=== PATIENT | male | born 1980 | race Caucasian/White ===

== ENCOUNTER 2019-08-27 16:11 | Emergency (ER) | payer SELFPAY ==
[2019-08-27] MEDS ORDERED: OLANZAPINE 2.5 MG TABLET PO ONE (17:21)
[2019-08-27] MEDS ORDERED: HYDROXYZINE PAMOATE 50 MG CAPSULE PO ONE (17:21)
--- NOTE | 2019-08-27 17:27 | ER Document Report ---
ED Psych Disorder / Suicide - General Mode of Arrival: Medic Information source: Patient TRAVEL OUTSIDE OF THE U.S. IN LAST 30 DAYS: No - Related Data Home Medications: pt brought home medications <MARIAKATLINMILDRED A - Last Filed: 08/27/19 17:52> <KETURAH CASTELLANOS - Last Filed: 08/28/19 16:49> <SANDY MCKINNEY - Last Filed: 08/28/19 16:58> - General Chief Complaint: Psych Problem Stated Complaint: ANXIETY Time Seen by Provider: 08/27/19 17:06 - HPI Notes: 39-year-old male with a history of bipolar disorder, schizophrenia for complaints of panic attack and anxiety that has become progressively worse over the last 4 days presents to the emergency room with suicidal ideations in which he plans to cut himself. Patient is requesting for security to be around because he is scared that he is going to hurt himself. His girlfriend is in the room, girlfriend states that she is not scared that he will hurt her. Patient admits that he is a quarter and has been trying to cut himself. Denies fevers, chills, chest pain,palpitations, shortness of breath, dyspnea, nausea, vomi ting, diarrhea, abdominal pain, hematuria,blurred vision, double vision, loss of vision, speech changes, LH, dizziness, syncope, headaches, wheezing, ST, URI, neck pain, weakness, bowel or bladder dysfunction, saddle anesthesia, numbness or tingling in bilateral upper or lower extremities equally, muscle paralysis, weakness in bilateral upper or lower extremities equally or rash. Denies IV drug use. (MILDRED SIFUENTES) - Related Data Allergies/Adverse Reactions: codeine [Codeine] Allergy (Verified 08/27/19 16:33) cyclobenzaprine HCl [From Flexeril] Allergy (Verified 08/27/19 16:33) acetaminophen [From Tylenol] Adverse Reaction (Verified 08/27/19 16:33) mercury Allergy (Uncoded 08/27/19 16:33) Past Medical History - General Information source: Patient - Social History Smoking Status: Current Every Day Smoker Frequency of alcohol use: Occasional Drug Abuse: Marijuana Family History: Arthritis, CAD, COPD, DM, Hyperlipidemia, Hypertension. denies: CVA, Malignancy, Thyroid Disfunction Patient has suicidal ideation: Yes - x 4 days Patient has homicidal ideation: No Pulmonary Medical History: Reports: Hx Asthma - As a child Neurological Medical History: Reports: Hx Seizures Renal/ Medical History: Reports: Hx Kidney Stones. Denies: Hx Peritoneal Dialysis GI Medical History: Reports: Hx Hepatitis - C Musculoskeletal Medical History: Reports Hx Musculoskeletal Trauma Skin Medical History: Reports Hx Cellulitis - Right foot 3 weeks ago, healed Psychiatric Medical History: Reports: Hx Bipolar Disorder, Hx Depression, Hx Schizophrenia - paranoid Traumatic Medical History: Reports: Hx Fractures - right knee Infectious Medical History: Reports: Hx Hepatitis - C - Immunizations Immunizations up to date: Yes Hx Diphtheria, Pertussis, Tetanus Vaccination: Yes <MILDRED SIFUENTES - Last Filed: 08/27/19 17:52> Review of Systems - Review of Systems Constitutional: No symptoms reported EENT: No symptoms reported Cardiovascular: No symptoms reported Respiratory: No symptoms reported Gastrointestinal: No symptoms reported Genitourinary: No symptoms reported Male Genitourinary: No symptoms reported Musculoskeletal: No symptoms reported Skin: No symptoms reported Hematologic/Lymphatic: No symptoms reported Neurological/Psychological: See HPI <MILDRED SIFUENTES - Last Filed: 08/27/19 17:52> Physical Exam <MILDRED SIFUENTES - Last Filed: 08/27/19 17:52> - Vital signs Vitals: Temp Pulse Resp BP Pulse Ox 98.0 F 112 H 16 132/98 H 98 08/27/19 16:23 08/27/19 16:23 08/27/19 16:23 08/27/19 16:23 08/27/19 16:23 - Notes Notes: PHYSICAL EXAMINATION:reviewed vital signs by RN GENERAL: Well-appearing, well-nourished and in mild distress. HEAD: Atraumatic, normocephalic. EYES: Pupils equal round and reactive to light, extraocular movements intact, sclera anicteric, conjunctiva are normal. ENT: Nares patent, oropharynx clear without exudates. Moist mucous membranes. NECK: Normal range of motion, supple without lymphadenopathy LUNGS: Breath sounds clear to auscultation bilaterally and equal. No wheezes rales or rhonchi. HEART: Regular rate and rhythm without murmurs ABDOMEN: Soft, nontender, nondistended abdomen. No guarding, no rebound. No masses appreciated. Musculoskeletal: Normal range of motion, no pitting or edema. No cyanosis. NEUROLOGICAL: Cranial nerves grossly intact. Normal speech, normal gait. Normal sensory, motor exams PSYCH:very anxious, flat affect SKIN: Warm, Dry, normal turgor, no rashes or lesions noted. (MILDRED SIFUENTES) Course - Laboratory Result Diagrams: 08/27/19 16:52 08/27/19 16:52 <MILDRED SIFUENTES - Last Filed: 08/27/19 17:52> - Laboratory Result Diagrams: 08/27/19 16:52 08/27/19 16:52 <KETURAH CASTELLANOS - Last Filed: 08/28/19 16:49> - Laboratory Result Diagrams: 08/27/19 16:52 08/27/19 16:52 <SANDY MCKINNEY - Last Filed: 08/28/19 16:58> - Re-evaluation Re-evalutation: 08/27/19 17:56 Afebrile vital stable and in mild distress due to anxiety. Nurse's notes reviewed. Patient placed on IVC paperwork due to wanting to leave before being seen by mental health. Patient initial medications started of Zyprexa 2.5 mg and Vistaril 50 mg orally for his p.m. doses. Patient states he is becoming more anxious, feels like his panic attack is getting worse, patient given 50 mg of Benadryl IM and Geodon 20 mg IM. 08/27/19 17:57 (MILDRED SIFUENTES) - Vital Signs Vital signs: Temp Pulse Resp BP Pulse Ox 97.7 F 70 18 110/60 99 08/28/19 11:00 08/28/19 11:00 08/28/19 11:00 08/28/19 11:00 08/28/19 11:00 - Laboratory Laboratory results interpreted by me: 08/27/19 08/28/19 16:52 02:15 BUN 26 H Total Bilirubin 1.4 H AST 87 H Total Protein 8.7 H Albumin 5.1 H Urine Ketones 20 H Acetaminophen < 10 L Discharge <MILDRED SIFUENTES - Last Filed: 08/27/19 17:52> <KETURAH CASTELLANOS - Last Filed: 01/08/20 16:49> <FAYEADIELJUAN - Last Filed: 08/28/19 16:58> - Discharge Clinical Impression: Suicidal ideation, Anxiety Condition: Stable Disposition: HOME, SELF-CARE Additional Instructions: You have been evaluated by both medical and behavioral health teams and have been deemed appropriate for discharge. Medication recommendations have been provided and are as follows: Depakote 250MG, twice a day You have elected to seek voluntary substance abuse treatment at [facility]. You are encouraged to follow up with this opportunity. You are highly encouraged to cease all illicit substance use. Bipolar Disorder Bipolar disorder is also called manic-depressive disorder. Depression alternates with brain hyperactivity called roman. Each phase lasts from several days to a few weeks. We don't know exactly what causes bipolar disorder, but it's treatable. During the "manic phase," you may feel elated and energetic. You may have racing thoughts, rapid speech, increased activity, and grandiose ideas. During this time, you may not realize how poor your judgement is. Inappropriate spending, drug abuse, excessive alcohol use, marriage problems, and irresponsible sexual behavior are common during the manic phase. During the "depressive phase," you might feel depressed, guilty, worthless, fatigued, and unable to concentrate. You might have thoughts of suicide. Good treatments are available for bipolar disorder. Welsh is a classic drug for bipolar disorder, and is still often useful. If the manic phase is very mild, an antidepressant alone can be prescribed. If the manic phase is very severe, an antipsychotic medicine (such as Haldol) may be needed. The treatment must be matched to your symptoms, so it's important to work closely with your psychiatric care provider. Contact your physician, the hospital emergency center, crisis line, or your counsellor if you are losing control or having self-destructive thoughts. AMPHETAMINE / METHAMPHETAMINE ABUSE: Amphetamines are addicting stimulants. Amphetamines overstimulate the nervous system and give a false feeling of power and mastery. These drugs may be obtained as prescription pills for weight loss, narcolepsy, or attention-deficit disorder. More often they're bought as an illegal street drug, methamphetamine (crank, crystal, speed). Using amphetamines repeatedly can lead to serious medical problems including malnutrition, severe depression, and paranoia. It can take increasing amounts to feel good. Eventually, there will be a "burn out." When you go off amphetamines there is a period of depression that may last for weeks or even months. High doses of amphetamines can cause seizures, confusion, hallucinations, delusions, high blood pressure, muscle damage, heart damage, or sudden . Many times these deadly complications occur even with "normal" doses. Injection of amphetamines is risky for developing abscesses, endocarditis (heart infection), pneumonia, and AIDS. Withdrawal from amphetamines often causes anxiety, depression, and drug cravings. Some users become paranoid and psychotic. There may be cramps, nausea, and vomiting. Many treatment programs are available, but you must make the decision to quit. Medication can be prescribed to control the symptoms of amphetamine toxicity (beta blockers or benzodiazepines). Withdrawal symptoms may require tranquilizers. AT ANY TIME, IF YOUR SYMPTOMS CHANGE SIGNIFICANTLY OR WORSEN OR YOU DEVELOP NEW SYMPTOMS, RETURN TO THE EMERGENCY DEPARTMENT IMMEDIATELY FOR RE-EVALUATION. Prescriptions: Divalproex Sodium [Depakote] 250 mg PO BID #30 tablet.
[2019-08-27 17:30] LABS: ABSOLUTE EOSINOPHILS # (AUTO) 0.1 10^3/uL (0.0-0.6); ABSOLUTE LYMPHOCYTES (AUTO) 1.9 10^3/uL (0.5-4.7); ABSOLUTE MONOCYTES (AUTO) 0.7 10^3/uL (0.1-1.4); ABSOLUTE NEUT (AUTO) 3.9 10^3/uL (1.7-8.2); BASOPHILS % (AUTO) 0.5 % (0-2); EOSINOPHILS % (AUTO) 1.9 % (0-6); HEMATOCRIT 40.9 % (37.9-51.0); HEMOGLOBIN 14.2 g/dL (13.5-17.0); LYMPHOCYTES % (AUTO) 28.3 % (13-45); MEAN CORPUSCULAR HEMOGLOBIN 29.8 pg (27.0-33.4); MEAN CORPUSCULAR HGB CONC 34.6 g/dL (32.0-36.0); MEAN CORPUSCULAR VOLUME 86 fl (80-97); MONOCYTES % (AUTO) 10.8 % (3-13); PLATELET COUNT 257 10^3/uL (150-450); RED BLOOD COUNT 4.75 10^6/uL (4.35-5.55); RED CELL DISTRIBUTION WIDTH 13.8 % (11.5-14.0); SEGMENTED NEUTROPHILS % (AUTO) 58.5 % (42-78); TOTAL CELLS COUNTED % (AUTO) 100 %; WHITE BLOOD COUNT 6.6 10^3/uL (4.0-10.5)
[2019-08-27 17:47] LABS: ALBUMIN 5.1 g/dL (3.5-5.0); ALKALINE PHOSPHATASE 87 U/L (38-126); ANION GAP 12 (5-19); ASPARTATE AMINO TRANSFERASE 87 U/L (17-59); BILIRUBIN,DIRECT 0.4 mg/dL (0.0-0.4); BILIRUBIN,TOTAL 1.4 mg/dL (0.2-1.3); BLOOD UREA NITROGEN 26 mg/dL (7-20); CALCIUM 9.6 mg/dL (8.4-10.2); CARBON DIOXIDE 26 mmol/L (22-30); CHLORIDE 100 mmol/L (98-107); GLUCOSE 98 mg/dL (75-110); POTASSIUM 3.9 mmol/L (3.6-5.0); SALICYLATE 2.5 mg/dL (2.0-20.0); TOTAL PROTEIN 8.7 g/dL (6.3-8.2)
[2019-08-27] MEDS ORDERED: ZIPRASIDONE MESYLATE INJ/PF 20 MG SDV IM ONE (17:47)
[2019-08-27] MEDS ORDERED: DIPHENHYDRAMINE HCL 50 MG/ML VIAL IM ONE (17:47)
[2019-08-27 17:52] LABS: ACETAMINOPHEN < 10 ug/mL (10-30); ALCOHOL < 10 mg/dL (NONE DETECTED)
[2019-08-27] MEDS ORDERED: CHLORPROMAZINE HCL INJ 25 MG/1 ML AMPULE IV PRN ×2 (19:01→19:07)
[2019-08-27] MEDS ORDERED: BENZTROPINE MESYLATE INJ 2 MG/2 ML AMPULE IM PRN (19:02)
[2019-08-27] MEDS ORDERED: CHLORPROMAZINE HCL INJ 25 MG/1 ML AMPULE IM PRN (19:09)
[2019-08-27] MEDS: BENZTROPINE MESYLATE INJ 2 MG/2 ML AMPULE IM SCH (19:42)
--- NOTE | 2019-08-27 22:38 | EKG REPORT ---
SEVERITY:- NORMAL ECG - SINUS RHYTHM : Confirmed by: Nahum Marquis 27-Aug-2019 22:38:34
[2019-08-28 02:36] LABS: APPEARANCE,URINE CLEAR; BILIRUBIN,URINE NEGATIVE (NEGATIVE); COLOR,URINE YELLOW; GLUCOSE, URINE NEGATIVE (NEGATIVE); KETONES,URINE 20 mg/dL (NEGATIVE); LEUKOCYTE ESTERASE,URINE NEGATIVE (NEGATIVE); NITRITE,URINE NEGATIVE (NEGATIVE); PROTEIN,URINE NEGATIVE (NEGATIVE); URINE SPECIFIC GRAVITY 1.019; UROBILINOGEN,URINE NEGATIVE mg/dL (<2.0)
[2019-08-28 02:54] LABS: URINE BARBITURATES SCREEN NEGATIVE; URINE BENZODIAZEPINES SCREEN NEGATIVE; URINE COCAINE SCREEN NEGATIVE; URINE METHADONE SCREEN NEGATIVE; URINE PHENCYCLIDINE SCREEN NEGATIVE
[2019-08-28 03:06] LABS: URINE MARIJUANA (THC) SCREEN UNCONFIRMED POSITIVE
--- NOTE | 2019-08-28 09:24 | PSYCHOLOGICAL NOTE ---
Psych Note - Psych Note Date seen by psych provider: 08/28/19 Time seen by psych provider: 08:05 Psych Note: Reason for consult: SI & Auditory and visual hallucinations Patient is a 39 year old male who presents to ED via EMS after concerns for inc reasing panic attacks. Patient was placed on IVC petition when he threatened to elope. Patient was released from [facility] ago. Patient complains of paranoia, auditory and visual hallucinations, and suicidal ideation. Patient states his suicidal ideation is linked to distress from experiencing auditory hallucinations. Patient reports mental health diagnosis of Bipolar and Schizophrenia. Patient states he is experiencing visual hallucinations by "seeing a lot of things," specifically people out to get me. Patient states he is experiencing auditory hallucinations by "seeing the people out to get me." Patient denies command hallucinations of any type. Patient reports paranoia and stated he had an "episode" in which he "thought the nurses were in on it." Clinician inquired further. Patient states he wanted to leave but "the nurse would not let me leave." Clinician informed patient of IVC petition due to concerns he was a danger to himself in the stated in which he presented to the ED. Patient verbalized understanding. Patient states he "just woke up" so he does not know if his is currently experiencing paranoid type delusions. Patient states he has "no idea" what his plans are post [facility] release. Patient states he has stable housing with his girlfriend. Patient is on probation for 12 months. Patient reports ETOH consumption and marijuana use on 08/23/2019. [facility] urine drug screen is positive for marijuana and amphetamines. Patient denies voluntary consumption of amphetamine of any kind. Patient states "my joint must have been laced." Patient is requesting placement to [facility] for substance abuse treatment. Clinician reviewed substance abuse history since his release from [facility] 4 days ago. Clinician informed patient he does not meet the criteria for [facility]. Patient states he takes "street" Suboxone daily to treat substance abuse. Patient states "I'm bout to be sick as hell in here today." Patient states he needs detox from Suboxone, which he received daily while incarcerated. Patient reports a history of substance abuse. Patient reports mental health diagnosis of Schizophrenia and Bipolar Disorder. Patient states he was pr escribed, and has been taking the Zyprexa. Patient is poor historian regarding mental health related questions. Update 16:25- Patient states he was taking Suboxone without prescription while he was incarcerated. Patient is alert and oriented to person, place, time and circumstance. Mood is normal with congruent affect. Patient endorses passive suicide with no plan. Patient denies homicidal ideation. Patient reports paranoid delusions, however here is no observed behavior that suggests patient is responding to internal stimuli. Patient reports current auditory and visual hallucinations. Eye contact is appropriate. Conversational speech is within normal rate, tone, and prosody. Intellectual ability appears to be within average range. Attention and concentration are good. Insight, judgment and impulse control are currently poor. Medication recommendations per [facility] contracted psychiatrist Dr. Ramona MELO is as follows: Depakote 250MG, twice a day Impression/Plan: Patient is recommended for rescind of IVC and is cleared from acute psychiatric services. Patient endorses passive suicidal ideation with no plan. Patient denies homicidal ideation. There is no observed behavior that suggests patient is responding to internal stimuli, however patient reports paranoid delusions and auditory and visual hallucinations. Patient was released from [facility] 4 days ago. Patient was taking Suboxone without prescription during his 27 month incarceration. Patient reported possible seizure activity in 2011, however seizures were not verified. Patient reports no seizure activity. [facility] would not accept patient initially because of concerns for seizures. ED Physician prescribed Depakote 250MG, twice a day for mental health concerns. Depakote will also help with seizure concerns. Plan is for patient to voluntary seek treatment at [facility]. Dr. Padgett was consulted on the care and management of this patient; attending physician is in agreement with recommendations and disposition.
[2019-08-28] MEDS: BENZTROPINE MESYLATE INJ 2 MG/2 ML AMPULE IM SCH (10:29)
[2019-08-28] MEDS ORDERED: IBUPROFEN 800 MG TABLET PO ONE (13:19)
--- NOTE | 2019-08-28 14:10 | ER Document Report ---
Doctor's Note Notes: 08/28/19 14:08 PHYSICAL EXAMINATION: GENERAL: Well-appearing and in no acute distress. HEAD: Atraumatic, normocephalic. EYES: sclera anicteric, conjunctiva are normal. ENT: nares patent. Moist mucous membranes. NECK: Normal range of motion, supple without lymphadenopathy LUNGS: CTAB and equal. No wheezes rales or rhonchi. HEART: Regular rate and rhythm without murmurs EXTREMITIES: Normal range of motion, no pitting edema. NEUROLOGICAL: Cranial nerves grossly intact. Normal speech. Normal gait. PSYCH: Normal mood, normal affect. SKIN: Warm, Dry, normal turgor, no rashes or lesions noted 08/28/19 14:09 Patient complains of feeling jittery as he feels like he is withdrawing from Suboxone. Patient is requesting something to help settle his nerves. [employer] advised of patient's PRN orders. Patient otherwise appears medically clear for transfer discharge pending mental health evaluation. 08/28/19 17:06 Mental health team have arranged for patient to go to [facility] for treatment. They do recommend starting patient on prescription of Depakote 250 mg twice a day. IVC team feels that patient does not meet IVC criteria at this time and is stable for discharge. Patient otherwise medically clear for discharge. Patient does plan to follow-up with the [facility] and will present there once he has picked up his prescriptions.
[2019-08-28 17:13] VITALS: BP 132/78
== END 2019-08-28 17:33 | disposition home or self-care (01) ==
LOC: ER 16:11
DX: F41.9 Anxiety disorder, unspecified (principal); R45.851 Suicidal ideations; F17.200 Nicotine dependence, unspecified, uncomplicated; F12.10 Cannabis abuse, uncomplicated; Z88.6 Allergy status to analgesic agent; Z88.5 Allergy status to narcotic agent; Z88.8 Allergy status to other drugs, medicaments and biological substances; Z91.048 Other nonmedicinal substance allergy status; Z75.1 Person awaiting admission to adequate facility elsewhere
CPT/HCPCS: 93005; 99284; 96372; 36415; 80307 ×4; 84443; 85025; 80053; 81001; 93010; J0515 ×2; J1200; J3490; J3486; J3230

== ENCOUNTER 2019-08-30 05:06 | Emergency (ER) | payer SELFPAY ==
[2019-08-30 05:26] LABS: ABSOLUTE LYMPHOCYTES (AUTO) 0.9 10^3/uL (0.5-4.7); ABSOLUTE MONOCYTES (AUTO) 0.5 10^3/uL (0.1-1.4); ABSOLUTE NEUT (AUTO) 4.5 10^3/uL (1.7-8.2); BASOPHILS % (AUTO) 0.5 % (0-2); EOSINOPHILS % (AUTO) 0.3 % (0-6); HEMATOCRIT 40.7 % (37.9-51.0); LYMPHOCYTES % (AUTO) 14.4 % (13-45); MEAN CORPUSCULAR HEMOGLOBIN 29.7 pg (27.0-33.4); MEAN CORPUSCULAR HGB CONC 34.4 g/dL (32.0-36.0); MEAN CORPUSCULAR VOLUME 87 fl (80-97); MONOCYTES % (AUTO) 8.2 % (3-13); PLATELET COUNT 225 10^3/uL (150-450); RED CELL DISTRIBUTION WIDTH 13.7 % (11.5-14.0); SEGMENTED NEUTROPHILS % (AUTO) 76.6 % (42-78); TOTAL CELLS COUNTED % (AUTO) 100 %; WHITE BLOOD COUNT 5.9 10^3/uL (4.0-10.5)
[2019-08-30 05:49] LABS: ALBUMIN 4.8 g/dL (3.5-5.0); ALKALINE PHOSPHATASE 62 U/L (38-126); ANION GAP 13 (5-19); ASPARTATE AMINO TRANSFERASE 86 U/L (17-59); BILIRUBIN,DIRECT 0.4 mg/dL (0.0-0.4); BILIRUBIN,TOTAL 0.9 mg/dL (0.2-1.3); BLOOD UREA NITROGEN 32 mg/dL (7-20); CALCIUM 9.7 mg/dL (8.4-10.2); CARBON DIOXIDE 26 mmol/L (22-30); CHLORIDE 102 mmol/L (98-107); GLUCOSE 152 mg/dL (75-110); POTASSIUM 3.8 mmol/L (3.6-5.0); SALICYLATE 1.1 mg/dL (2.0-20.0)
[2019-08-30 05:53] LABS: ACETAMINOPHEN < 10 ug/mL (10-30); ALCOHOL < 10 mg/dL (NONE DETECTED)
[2019-08-30 07:08] VITALS: BP 124/79
--- NOTE | 2019-08-30 07:08 | ER Document Report ---
ED General - General Chief Complaint: Psych Problem Stated Complaint: HALUCINATION Time Seen by Provider: 08/30/19 06:52 TRAVEL OUTSIDE OF THE [place].S. IN LAST 30 DAYS: No - HPI Notes: Patient is a 39-year-old male who presents to the emergency department for evaluation. He was recently released from shelter. He states he was released with prescriptions for Zyprexa that were entirely too low. He states has been increasingly paranoid. He states he wants help, but particularly just wants this Zyprexa dose increased. He states he used to be on 25 mg of Zyprexa twice a day, he is now currently on 2.5 mg. He denies any suicidal or homicidal ideation, admits to cutting. He states he had gotten some relief with cutting in the past, but states it was not helpful this time around. The patient is present with his girlfriend here in the room. He states that he would like to be discharged. He already has set up appointments with [facility] for either tomorrow or Monday. He states that he had been here previously and was not happy with the results. He states that he wants to go to [facility] [place], and plans to leave the department and go directly to [facility] for further psychiatric evaluation. His girlfriend is with him, states that this is the plan. - Related Data Allergies/Adverse Reactions: codeine [Codeine] Allergy (Verified 08/27/19 16:33) cyclobenzaprine HCl [From Flexeril] Allergy (Verified 08/27/19 16:33) acetaminophen [From Tylenol] Adverse Reaction (Verified 08/27/19 16:33) mercury Allergy (Uncoded 08/27/19 16:33) Home Medications: ziprexa. prozac. visteril. suboxone ( off the street) per pt Past Medical History - General Information source: Patient - Social History Smoking Status: Current Every Day Smoker Chew tobacco use (# tins/day): No Frequency of alcohol use: None Drug Abuse: Marijuana, Other - Obtains Suboxone illegally Family History: Arthritis, CAD, COPD, DM, Hyperlipidemia, Hypertension. denies: CVA, Malignancy, Thyroid Disfunction Patient has suicidal ideation: No Patient has homicidal ideation: No Pulmonary Medical History: Reports: Hx Asthma - As a child Neurological Medical History: Reports: Hx Seizures Renal/ Medical History: Reports: Hx Kidney Stones. Denies: Hx Peritoneal Dialysis GI Medical History: Reports: Hx Hepatitis - C Musculoskeletal Medical History: Reports Hx Musculoskeletal Trauma Skin Medical History: Reports Hx Cellulitis - Right foot 3 weeks ago, healed Psychiatric Medical History: Reports: Hx Bipolar Disorder, Hx Depression, Hx Schizophrenia - paranoid Traumatic Medical History: Reports: Hx Fractures - right knee Infectious Medical History: Reports: Hx Hepatitis - C - Immunizations Immunizations up to date: Yes Hx Diphtheria, Pertussis, Tetanus Vaccination: Yes Review of Systems - Review of Systems Constitutional: No symptoms reported EENT: No symptoms reported Cardiovascular: No symptoms reported Respiratory: No symptoms reported Gastrointestinal: No symptoms reported Genitourinary: No symptoms reported Skin: See HPI Neurological/Psychological: No symptoms reported Physical Exam - Vital signs Vitals: Temp Pulse Resp BP Pulse Ox 97.7 F 77 16 119/81 100 08/30/19 05:08 08/30/19 05:08 08/30/19 05:08 08/30/19 05:08 08/30/19 05:08 - Notes Notes: Is a 39-year-old male who appears stated age in no acute distress. He is calm and cooperative, sitting on the bed with his girlfriend. He makes good eye contact. Vital signs reviewed, please refer to chart. Head is normocephalic, atraumatic. Pupils equal round, reactive to light. Neck is supple without meningismus. Heart is regular rate and rhythm. Lungs are clear to auscultation bilaterally. Abdomen is soft, nontender, normoactive bowel sounds throughout. Extremities without cyanosis, clubbing. Posterior calves are nontender. Peripheral pulses are equal. Skin is warm and dry. He has superficial healing lacerations noted to the left forearm. He has multiple scars on the forearms consistent with history of cutting. Patient is awake, alert, neurological exam is nonfocal. Course - Re-evaluation Re-evalutation: 08/30/19 07:11 Patient presents to the emergency department for evaluation. Initially he was placed in a psychiatric consult. The patient at this time has no suicidal or homicidal ideation. He has a longstanding history of schizophrenia, believes he just needs medication adjustment. He states he was "unhappy" with the care and recommendations he received here. He is already been in touch with primary care, seeking out counseling, and has a plan to seek out medications at this time. Today, the patient and girlfriend are able to contract for safety. At this point, I do not see any need for IVC. The patient is not an imminent threat to himself. He had his IVC removed when he was seen by the psychosocial team yesterday. At this point I will discharge the patient. He is advised to continue medications as prescribed, return to the ED with worsening or new barbara rning symptoms of any sort. - Vital Signs Vital signs: Temp Pulse Resp BP Pulse Ox 98 F 68 16 124/79 100 08/30/19 07:08 08/30/19 07:08 08/30/19 07:08 08/30/19 07:08 08/30/19 07:08 - Laboratory Result Diagrams: 08/30/19 05:12 08/30/19 05:12 Laboratory results interpreted by me: 08/30/19 05:12 BUN 32 H Glucose 152 H AST 86 H Salicylates 1.1 L Acetaminophen < 10 L Discharge - Discharge Clinical Impression: Schizophrenia Condition: Stable Disposition: HOME, SELF-CARE Instructions: Schizophrenia ([facility]) Additional Instructions: Please continue to take your prescribed medications as directed. Continue to seek out appropriate psychiatric/psychological care. Return to the emergency department with worsening or new concerning symptoms of any sort.
--- NOTE | 2019-08-30 21:00 | EKG REPORT ---
SEVERITY:- OTHERWISE NORMAL ECG - SINUS TACHYCARDIA : Confirmed by: Nahum Marquis 30-Aug-2019 20:59:59
== END 2019-08-30 07:26 | disposition home or self-care (01) ==
LOC: ER 05:06
DX: F20.0 Paranoid schizophrenia (principal); F31.9 Bipolar disorder, unspecified; F19.10 Other psychoactive substance abuse, uncomplicated; F12.10 Cannabis abuse, uncomplicated; F17.200 Nicotine dependence, unspecified, uncomplicated; S51.812A Laceration without foreign body of left forearm, initial encounter; X78.9XXA Intentional self-harm by unspecified sharp object, initial encounter; Z79.899 Other long term (current) drug therapy; Z88.6 Allergy status to analgesic agent; Z88.5 Allergy status to narcotic agent; Z88.8 Allergy status to other drugs, medicaments and biological substances; Z91.048 Other nonmedicinal substance allergy status
CPT/HCPCS: 36415; 80053; 80307; 85025; 93005; 93010; 99284

== ENCOUNTER 2019-09-29 11:14 | Emergency (ER) | payer SELFPAY ==
[2019-09-29] MEDS ORDERED: ONDANSETRON 4 MG TAB.RAPDIS PO ONE (11:27)
--- NOTE | 2019-09-29 11:29 | ER Document Report ---
ED Medical Screen (RME) - General Stated Complaint: PSYCH/FLU SYMPTOMS Time Seen by Provider: 09/29/19 11:22 Mode of Arrival: Medic Information source: Patient Notes: 39-year-old male patient with history of schizophrenia presenting to the emergency department with complaints of auditory and visual hallucinations as well as flulike symptoms. Patient reports he has had the flulike symptoms for his me 1 week. States he has been vomiting. Patient denies any suicidal homicidal ideations but states that he does not think he is on the right psychiatric medications and wants help. Patient appears very anxious, he is very guarded however he is answering most questions. I have greeted and performed a rapid initial assessment of this patient. A comprehensive ED assessment and evaluation of the patient, analysis of test results and completion of the medical decision making process will be conducted by additional ED providers. I have specifically instructed the patient or family members with the patient to immediately return to any nursing staff should anything change in the patient's condition or with their chief complaint. TRAVEL OUTSIDE OF THE [place] IN LAST 30 DAYS: No - Related Data Allergies/Adverse Reactions: codeine [Codeine] Allergy (Verified 08/27/19 16:33) cyclobenzaprine HCl [From Flexeril] Allergy (Verified 08/27/19 16:33) acetaminophen [From Tylenol] Adverse Reaction (Verified 08/27/19 16:33) mercury Allergy (Uncoded 08/27/19 16:33) Past Medical History Pulmonary Medical History: Reports: Hx Asthma - As a child Neurological Medical History: Reports: Hx Seizures Renal/ Medical History: Reports: Hx Kidney Stones. Denies: Hx Peritoneal Dialysis GI Medical History: Reports: Hx Hepatitis - C Musculoskeltal Medical History: Reports Hx Musculoskeletal Trauma Skin Medical History: Reports Hx Cellulitis - Right foot 3 weeks ago, healed Psychiatric Medical History: Reports: Hx Bipolar Disorder, Hx Depression, Hx Schizophrenia - paranoid Traumatic Medical History: Reports: Hx Fractures - right knee Infectious Medical History: Reports: Hx Hepatitis - C - Immunizations Immunizations up to date: Yes Hx Diphtheria, Pertussis, Tetanus Vaccination: Yes
[2019-09-29] MEDS ORDERED: NORMAL SALINE 1000 ML 1,000 ML IV ONE ×2 (12:08→16:43)
--- NOTE | 2019-09-29 12:12 | ER Document Report ---
ED Psych Disorder / Suicide - General Chief Complaint: Psych Problem Stated Complaint: PSYCH/FLU SYMPTOMS Time Seen by Provider: 09/29/19 11:22 Mode of Arrival: Medic Notes: HPI: 39-year-old male with past medical history as recorded including schizophrenia who presents today with the onset 1 week ago of some nausea, vomiting, and diarrhea. He has had the symptoms throughout the week which have subsided yesterday. No vomiting or diarrhea today. Patient does feel improved. Currently no abdominal pain. He states his auditory hallucinations have worsened. He has not been able to take his medications. His is at bedside and concurs with this assessment. Denies any suicidal homicidal ideations at this moment. ROS: See HPI All other review of systems reviewed and otherwise negative Reviewed vital signs and nursing note as charted by RN. PHYSICAL EXAM: CONSTITUTIONAL: Alert and oriented and responds appropriately to questions. Well-appearing; well-nourished HEAD: Normocephalic; atraumatic EYES: PERRL; full extraocular range of motion, sclerae non-icteric ENT: Normal nose; no rhinorrhea; moist mucous membranes; pharynx without lesions noted NECK: Supple without meningismus; non-tender; no cervical lymphadenopathy, no masses CARD: Regular rate and rhythm; no murmurs; symmetric distal pulses RESP: Normal chest excursion without splinting or tachypnea; breath sounds clear and equal bilaterally; no wheezes, no rhonchi, no rales ABD/GI: Normal bowel sounds; non-distended; soft, non-tender to deep palpation of all 4 quadrants of the abdomen BACK: The back appears normal and is non-tender to palpation EXT: Normal ROM in all joints; non-tender to palpation; no edema SKIN: No acute lesions noted NEURO: CN 2-12 intact; 5/5 bilateral upper and lower extremity strength with sensation intact to light touch PSYCH: The patient's mood and manner currently are very reasonable. He is calm and interactive and answers all questions appropriately TRAVEL OUTSIDE OF THE [place] IN LAST 30 DAYS: No - Related Data Allergies/Adverse Reactions: codeine [Codeine] Allergy (Verified 08/27/19 16:33) cyclobenzaprine HCl [From Flexeril] Allergy (Verified 08/27/19 16:33) acetaminophen [From Tylenol] Adverse Reaction (Verified 08/27/19 16:33) mercury Allergy (Uncoded 08/27/19 16:33) Past Medical History - General Information source: Patient - Social History Smoking Status: Current Every Day Smoker Family History: Arthritis, CAD, COPD, DM, Hyperlipidemia, Hypertension. denies: CVA, Malignancy, Thyroid Disfunction Patient has suicidal ideation: No Patient has homicidal ideation: No Pulmonary Medical History: Reports: Hx Asthma - As a child Neurological Medical History: Reports: Hx Seizures Renal/ Medical History: Reports: Hx Kidney Stones. Denies: Hx Peritoneal Dialysis GI Medical History: Reports: Hx Hepatitis - C Musculoskeletal Medical History: Reports Hx Musculoskeletal Trauma Skin Medical History: Reports Hx Cellulitis - Right foot 3 weeks ago, healed Psychiatric Medical History: Reports: Hx Bipolar Disorder, Hx Depression, Hx Schizophrenia - paranoid Traumatic Medical History: Reports: Hx Fractures - right knee Infectious Medical History: Reports: Hx Hepatitis - C - Immunizations Immunizations up to date: Yes Hx Diphtheria, Pertussis, Tetanus Vaccination: Yes Physical Exam - Vital signs Vitals: Temp Pulse Resp BP Pulse Ox 98.0 F 128 H 20 128/90 H 99 09/29/19 11:29 09/29/19 11:09/29/19 11:09/29/19 11:29 09/29/19 11:29 Course - Re-evaluation Re-evalutation: 09/29/19 12:11 Given the above history and physical, we will obtain basic labs, provide fluids, consult the psychiatry/psychology team and reassess. We would like to start the patient on medications and have a consultation performed. 09/29/19 13:43 Labs as recorded. Heart rate has improved. Patient has accepted to take p.o. medications. We have restarted the patient's home medications according to behavioral health. - Vital Signs Vital signs: Temp Pulse Resp BP Pulse Ox 98.0 F 128 H 20 128/90 H 99 09/29/19 11:29 09/29/19 11:29 09/29/19 11:09/29/19 11:09/29/19 11:29 - Laboratory Result Diagrams: 09/29/19 12:42 09/29/19 12:42 Laboratory results interpreted by me: 09/29/19 12:42 Potassium 3.4 L BUN 22 H Glucose 150 H AST 79 H Total Protein 8.4 H Albumin 5.2 H Salicylates 1.0 L Acetaminophen < 10 L Discharge - Discharge Clinical Impression: Nausea vomiting and diarrhea, Auditory hallucinations Condition: Good Disposition: PSYCH HOSP/UNIT
[2019-09-29] MEDS: BENZTROPINE MESYLATE 1 MG TABLET PO SCH (12:48)
[2019-09-29] MEDS: HALOPERIDOL 5 MG TABLET PO SCH ×2 (12:49→20:37)
[2019-09-29 12:54] LABS: ABSOLUTE LYMPHOCYTES (AUTO) 1.1 10^3/uL (0.5-4.7); ABSOLUTE MONOCYTES (AUTO) 0.6 10^3/uL (0.1-1.4); ABSOLUTE NEUT (AUTO) 4.6 10^3/uL (1.7-8.2); BASOPHILS % (AUTO) 0.5 % (0-2); EOSINOPHILS % (AUTO) 0.2 % (0-6); HEMATOCRIT 44.6 % (37.9-51.0); HEMOGLOBIN 15.2 g/dL (13.5-17.0); LYMPHOCYTES % (AUTO) 17.8 % (13-45); MEAN CORPUSCULAR HEMOGLOBIN 29.6 pg (27.0-33.4); MEAN CORPUSCULAR HGB CONC 34.2 g/dL (32.0-36.0); MEAN CORPUSCULAR VOLUME 87 fl (80-97); MONOCYTES % (AUTO) 10.1 % (3-13); PLATELET COUNT 257 10^3/uL (150-450); RED BLOOD COUNT 5.15 10^6/uL (4.35-5.55); RED CELL DISTRIBUTION WIDTH 13.7 % (11.5-14.0); SEGMENTED NEUTROPHILS % (AUTO) 71.4 % (42-78); TOTAL CELLS COUNTED % (AUTO) 100 %; WHITE BLOOD COUNT 6.4 10^3/uL (4.0-10.5)
[2019-09-29 13:01] LABS: A TYPE INFLUENZA AG NEGATIVE (NEGATIVE); B INFLUENZA AG NEGATIVE (NEGATIVE)
[2019-09-29 13:10] LABS: ALBUMIN 5.2 g/dL (3.5-5.0); ALKALINE PHOSPHATASE 77 U/L (38-126); ANION GAP 13 (5-19); ASPARTATE AMINO TRANSFERASE 79 U/L (17-59); BILIRUBIN,DIRECT 0.1 mg/dL (0.0-0.4); BLOOD UREA NITROGEN 22 mg/dL (7-20); CARBON DIOXIDE 26 mmol/L (22-30); CHLORIDE 100 mmol/L (98-107); GLUCOSE 150 mg/dL (75-110); POTASSIUM 3.4 mmol/L (3.6-5.0); TOTAL PROTEIN 8.4 g/dL (6.3-8.2)
[2019-09-29 13:12] LABS: ACETAMINOPHEN < 10 ug/mL (10-30); ALCOHOL < 10 mg/dL (NONE DETECTED)
[2019-09-29] MEDS ORDERED: CHLORPROMAZINE HCL INJ 25 MG/1 ML AMPULE IM PRN (13:21)
--- NOTE | 2019-09-29 13:36 | PSYCHOLOGICAL NOTE ---
Psych Note - Psych Note Date seen by psych provider: 09/29/19 Time seen by psych provider: 13:00 Psych Note: Reason For Consult:AMS Consent Permissions:Patient's girlfriend at bedside per patient's request Patient discloses getting sick last Monday and been having difficulty taking his psychiatric medications. Patient reports that he goes to [facility] and receives prescriptions for Zyprexa, Suboxone, Vistaril, and Prozac. Patient reports that he experiences auditory hallucinations of hearing music. He reports that he has been experiencing panic attacks and increase in fear and is not sure if he is hearing everything correctly. Patient reports he has no thoughts of wanting to harm himself or others and has not engaged in any self- harm behaviors in "a long time." Patient's girlfriend at bedside confirms this information stating that it has been a very long time since the patient attempted to harm himself. Patient is alert and orientated to person, place, time and circumstance. Mood is anxious with congruent affect. Patient denies suicidal and homicidal ideation. Patient reports paranoid delusions and auditory hallucinations; currently behaviors congruent with an intact reality based presentation ie organized and linear thought process. Eye contact is fair; clinician notes patient's eyes are shifting back and forth with with a slight frequent jump. Conversational speech is within normal rate, tone and prosody. Intellectual a bilities appear to be within the average range. Attention and concentration are fair. Insight, judgment, impulse control are fair. Medication recommendations per [facility]'s contracted psychiatrist Dr. Ramona MELO are as follows: Haldol 5 mg twice daily Cogentin 1 mg daily Thorazine 50 mg every 6 hours PRN Impression\\plan: Patient is recommended for 24-hour petition for evaluation. Patient has a reported history of both mental health and substance abuse. Is currently presenting paranoid and reports auditory hallucinations. It is currently unknown at this time if he is under the influence, and is a danger to himself and others at this time. Clinician notes that if it is determined the patient was under the influence, and is no longer demonstrating altered mental status, attending physicians are encouraged to rescind the 24-hour petition for evaluation to allow the patient to go home and follow-up with outpatient mental health services through [facility]. Patient does have medications at home which he identifies as Zyprexa, Suboxone, Vistaril and Prozac. There is significant concern that the patient has been using methamphetamines and had a probable positive toxicology on 08/28/2019; patient is highly encouraged to abstain from all illegal substances. Dr. Padgett was consulted to care management of this patient; attending physicians in agreement with recommendations and disposition.
--- NOTE | 2019-09-29 20:36 | EKG REPORT ---
SEVERITY:- OTHERWISE NORMAL ECG - SINUS TACHYCARDIA : Confirmed by: Ana Laura Olmedo MD 29-Sep-2019 20:34:57
[2019-09-30] MEDS: BENZTROPINE MESYLATE 1 MG TABLET PO SCH (10:13)
[2019-09-30] MEDS: HALOPERIDOL 5 MG TABLET PO SCH (10:13)
[2019-09-30 11:17] LABS: APPEARANCE,URINE SLIGHTLY-CLOUDY; BILIRUBIN,URINE NEGATIVE (NEGATIVE); COLOR,URINE AMBER; GLUCOSE, URINE NEGATIVE (NEGATIVE); KETONES,URINE NEGATIVE (NEGATIVE); LEUKOCYTE ESTERASE,URINE NEGATIVE (NEGATIVE); NITRITE,URINE NEGATIVE (NEGATIVE); PROTEIN,URINE 100 mg/dL (NEGATIVE); URINE SPECIFIC GRAVITY 1.025
[2019-09-30 11:41] LABS: URINE BARBITURATES SCREEN NEGATIVE; URINE BENZODIAZEPINES SCREEN NEGATIVE; URINE COCAINE SCREEN NEGATIVE; URINE MARIJUANA (THC) SCREEN NEGATIVE; URINE METHADONE SCREEN NEGATIVE; URINE PHENCYCLIDINE SCREEN NEGATIVE
--- NOTE | 2019-09-30 12:41 | ER Document Report ---
Doctor's Note Notes: 09/30/19 12:39 Patient's vital signs and previous labs, diagnostic images reviewed. Reviewed mental health notes, nurse's notes and previous providers notes. VSS. Pt is in no distress at this time. Denies any SI or HI. Slightly elevated AST, is not 3 times the normal rate, I do not feel that his sister do hepatitis panel at this point. Mental health would like to discharge patient General: A&Ox3. Answers questions appropriately. Heart: RRR Lungs: CTAB Psych: Flat affect A/P: Continue monitoring and rec's per MH. Normal diet Mental health considering discharge
--- NOTE | 2019-09-30 13:35 | ER Document Report ---
Doctor's Note Notes: 09/30/19 13:34 Patient has been seen and assessed by the behavioral health team. Heart rate is currently 95. No tenderness to deep palpation repeat examination of the abdomen. Patient feels much better after night of medications without vomiting. We will refill any medications that the patient request and provide outpatient follow-up instructions.
[2019-09-30 14:17] VITALS: BP 95/60
--- NOTE | 2019-10-01 20:00 | PSYCHOLOGICAL NOTE ---
Psych Note - Psych Note Date seen by psych provider: 09/30/19 Time seen by psych provider: 09:10 Psych Note: Patient is a 39-year-old male who presents to ED via EMS with concerns of paranoia. Patient has a history with behavioral health team of same etiology as a result of substance abuse. Patient states he had a break, I guess. Patient reports he thought people after me. Patient states he does not currently believe people are out to get him. Patient states he is prescribed Suboxone 8MG, daily through [facility]. Patient states he has only been taking 2MG, daily for the last few days. Patient states he thought he saw people trying to get in my house and is still unsure if that happened. Patient denies current auditory and visual hallucinations, to include command auditory hallucinations. Patient states he has not engaged in substance use. Patient states he has not been able to urinate due to flu/cold symptoms. Patient reports home medications of Zyprexa 25MG, daily; Prozac 10MG, daily; and Vistiril 50MG, at night. Patients Tejal corral, stated patient experienced complete terror and absolute panic yesterday. Nathanael states patient made me watch and clear hallways and rooms to make sure he was safe. Patient provided urine for urine drug screen which was positive for opioids and amphetamine/methamphetamine. Impression/Plan: Patient is recommended for rescind of 24 hour petition for evaluation and is cleared from acute psychiatric services. Patient denies suicidal and homicidal ideations. There is no observed behavior that suggests patient is responding to internal stimuli. Patient engaged in organized, rat ional, linear thought processes and was able to express needs and wants in a logical manner. Patient has an extensive history of mental health and substance abuse concerns. When patient intially presented to the ED, it was unknown if patient was experiencing a mental health crisis or if patient was under the influence of substances. Patient's reported altered mental status continued to improve as patient sobered up, which suggests patient's altered mental status was a result of being under the influence of opioids and amphetamine/methamphetamine. Patient was provided with an outpatient substance abuse treatment resource list and was highly encouraged to engage in substance abuse treatment. Patient was reminded of the potential consequences of his continued substance use as he is on parole. Patient verbalized a desire to go to [facility] for substance abuse treatment. Dr. Gilbert was consulted on the care and management of this patient; attending physician is in agreement with recommendations and disposition.
== END 2019-09-30 14:17 ==
LOC: ER 11:14
DX: R11.2 Nausea with vomiting, unspecified (principal); R19.7 Diarrhea, unspecified; F20.0 Paranoid schizophrenia; F31.9 Bipolar disorder, unspecified; T43.596A Underdosing of other antipsychotics and neuroleptics, initial encounter; T43.226A Underdosing of selective serotonin reuptake inhibitors, initial encounter; Z91.128 Patient's intentional underdosing of medication regimen for other reason; Z91.14 Patient's other noncompliance with medication regimen; F17.200 Nicotine dependence, unspecified, uncomplicated; Z88.6 Allergy status to analgesic agent; Z88.5 Allergy status to narcotic agent; Z88.8 Allergy status to other drugs, medicaments and biological substances
CPT/HCPCS: 93005; 99285; 96372; 96360; 36415; 80307 ×4; 85025; 80053; 81001; 87804; 93010; J3230; S0119; J7030

== ENCOUNTER 2019-10-03 13:24 | Emergency (ER) | payer SELFPAY ==
[2019-10-03 14:15] LABS: ABSOLUTE MONOCYTES (AUTO) 0.7 10^3/uL (0.1-1.4); ABSOLUTE NEUT (AUTO) 4.5 10^3/uL (1.7-8.2); BASOPHILS % (AUTO) 0.2 % (0-2); EOSINOPHILS % (AUTO) 0.2 % (0-6); HEMATOCRIT 47.7 % (37.9-51.0); HEMOGLOBIN 16.3 g/dL (13.5-17.0); MEAN CORPUSCULAR HEMOGLOBIN 30.2 pg (27.0-33.4); MEAN CORPUSCULAR HGB CONC 34.2 g/dL (32.0-36.0); MEAN CORPUSCULAR VOLUME 88 fl (80-97); MONOCYTES % (AUTO) 11.1 % (3-13); PLATELET COUNT 199 10^3/uL (150-450); RED BLOOD COUNT 5.41 10^6/uL (4.35-5.55); RED CELL DISTRIBUTION WIDTH 13.5 % (11.5-14.0); SEGMENTED NEUTROPHILS % (AUTO) 72.5 % (42-78); TOTAL CELLS COUNTED % (AUTO) 100 %; WHITE BLOOD COUNT 6.2 10^3/uL (4.0-10.5)
[2019-10-03 14:46] LABS: ACETAMINOPHEN < 10 ug/mL (10-30); ALBUMIN 5.9 g/dL (3.5-5.0); ALCOHOL < 10 mg/dL (NONE DETECTED); ALKALINE PHOSPHATASE 84 U/L (38-126); ANION GAP 16 (5-19); ASPARTATE AMINO TRANSFERASE 87 U/L (17-59); BILIRUBIN,DIRECT 0.4 mg/dL (0.0-0.4); BILIRUBIN,TOTAL 1.1 mg/dL (0.2-1.3); BLOOD UREA NITROGEN 17 mg/dL (7-20); CALCIUM 10.4 mg/dL (8.4-10.2); CARBON DIOXIDE 23 mmol/L (22-30); CHLORIDE 103 mmol/L (98-107); GLUCOSE 117 mg/dL (75-110); POTASSIUM 5.1 mmol/L (3.6-5.0); SALICYLATE < 1.0 mg/dL (2.0-20.0); TOTAL PROTEIN 9.7 g/dL (6.3-8.2)
--- NOTE | 2019-10-03 14:56 | PSYCHOLOGICAL NOTE ---
Psych Note - Psych Note Date seen by psych provider: 10/03/19 Time seen by psych provider: 14:30 Psych Note: Reason For Consult:Hallucinations Consent Permissions:Patient's girlfriend at bedside per patient's request Patient reports he has continued to feel very sick and has been having days of vomiting and diarrhea since last seen on 09/29/2019 thru 09/30/2019. He reports he has not been able to keep his medications down and is unsure if it is because he is sick or that he has been off his medications but he has been having a lot of difficulty with feeling scared. He reports that he did barricade his himself in the home today and had knives with him because he was so scared. Patient admits to using screws to secure the front door to make himself feel safer. Patient's girlfriend reports that the patient has been seeing silhouettes of people in the window in a car. The only difficulty is that the window he is seeing the car and people is an area that would not have access or fit a vehicle. She reports that he has been having thoughts that people are out to hurt him. She requests that the patient not receive any Haldol as they feel it did not work effectively during his last visit. Patient reports that he should not be positive for methamphetamine today and confirms that he took a pain pill for his teeth prior to his previous visit. Patient is alert and orientated to person, place, time and circumstance. Mood and affect is blunted. Patient denies suicidal and homicidal ideation. Patient reports experiencing visual hallucinations at home that resulted in paranoia. Eye contact is fair to poor. Conversational speech is very quiet and difficult to hear. Intellectual abilities appear to be within the average range. Attention and concentration are poor. Insight, judgment, impulse control are fair to poor. Medication recommendations per [facility]'s contracted psychiatrist Dr. Ramona MELO are as follows Zyprexa 5mg IM twice daily Cogentin 1mg IM daily Thorazine 50mg IM every 8 hours as needed Impression\plan: Patient is recommended for 24-hour petition for evaluation. Patient presents with paranoid delusions from experiencing visual hallucinations and thoughts that people are out to hurt him. Patient does have both mental h ealth and substance abuse history. Patient has been compliant on his psychiatric medications however has recently been very ill and been unable to keep his medications down. At this time it is unclear if the patient's current presentation is due to medical, substance abuse, or breakthrough in mental health symptoms. Medication recommendations have been provided. Dr. Padgett was consulted to care management of this patient; attending physicians in agreement with recommendations and disposition.
[2019-10-03] MEDS ORDERED: NORMAL SALINE 1000 ML 1,000 ML IV ONE ×3 (15:09→17:44)
[2019-10-03] MEDS ORDERED: CHLORPROMAZINE HCL INJ 25 MG/1 ML AMPULE IM PRN (15:32)
--- NOTE | 2019-10-03 15:37 | ER Document Report ---
ED Psych Disorder / Suicide - General Mode of Arrival: Ambulatory Information source: Patient, Relative TRAVEL OUTSIDE OF THE [place] IN LAST 30 DAYS: No - HPI Patient complains to provider of: Hallucinating. No: Suicidal plan Onset: This morning Pain Level: 3 Suicide Risk Factors: Hallucinations, Male, Schizophrenia, Substance abuse Associated symptoms: Agitated, Paranoid Similar symptoms previously: Yes Recently seen / treated by doctor: Yes <SANDY MCKINNEY - Last Filed: 10/03/19 19:58> <KETURAH CASTELLANOS - Last Filed: 10/04/19 10:52> <SCOTTIE SANTOS - Last Filed: 10/04/19 11:10> - General Chief Complaint: Psych Problem Stated Complaint: PSYCH Time Seen by Provider: 10/03/19 15:00 Notes: Patient presents with complaints of paranoia and visual hallucinations. Patient does have a history of schizophrenia. Patient has been sick for the past 10 days and has had nausea and vomiting. Patient last vomited yesterday. Patient does complain of generalized stomach pain with subjective fever. Patient's reported to staff that at home he had barricaded himself in his home and screwed the door closed. Patient denies any suicidal homicidal ideation. Patient denies any diarrhea symptoms at home. Patient feels that he has been able to keep his Suboxone down but has not been able to keep his other medications down. (SANDY MCKINNEY) - Related Data Allergies/Adverse Reactions: codeine [Codeine] Allergy (Verified 08/27/19 16:33) cyclobenzaprine HCl [From Flexeril] Allergy (Verified 08/27/19 16:33) acetaminophen [From Tylenol] Adverse Reaction (Verified 08/27/19 16:33) mercury Allergy (Uncoded 08/27/19 16:33) Past Medical History - General Information source: Patient, Relative - Social History Smoking Status: Never Smoker Frequency of alcohol use: None Drug Abuse: Other - Methamphetamine Lives with: Family Family History: Arthritis, CAD, COPD, DM, Hyperlipidemia, Hypertension. denies: CVA, Malignancy, Thyroid Disfunction Pulmonary Medical History: Reports: Hx Asthma - As a child Renal/ Medical History: Reports: Hx Kidney Stones. Denies: Hx Peritoneal Dialysis GI Medical History: Reports: Hx Hepatitis - C Musculoskeletal Medical History: Reports Hx Musculoskeletal Trauma Skin Medical History: Reports Hx Cellulitis - Right foot 3 weeks ago, healed Psychiatric Medical History: Reports: Hx Anxiety, Hx Bipolar Disorder, Hx Depression, Hx Schizophrenia - paranoid Traumatic Medical History: Reports: Hx Fractures - right knee Infectious Medical History: Reports: Hx Hepatitis - C Past Surgical History: Reports: Hx Orthopedic Surgery - Immunizations Immunizations up to date: Yes Hx Diphtheria, Pertussis, Tetanus Vaccination: Yes <SANDY MCKINNEY - Last Filed: 10/03/19 19:58> Review of Systems - Review of Systems Constitutional: Fever, Recent illness - Nausea and vomiting over the past 10 days EENT: No symptoms reported. denies: Throat pain Cardiovascular: No symptoms reported. denies: Chest pain Respiratory: No symptoms reported Gastrointestinal: Abdominal pain, Nausea, Vomiting, Poor fluid intake. denies: Diarrhea Genitourinary: No symptoms reported. denies: Dysuria Male Genitourinary: No symptoms reported Musculoskeletal: No symptoms reported Skin: No symptoms reported Hematologic/Lymphatic: No symptoms reported Neurological/Psychological: Hallucinations. denies: Homicidal ideation, Suicidal ideation <SANDY MCKINNEY - Last Filed: 10/03/19 19:58> Physical Exam - General General appearance: Appears well, Alert In distress: None - HEENT Head: Normocephalic, Atraumatic Eyes: Normal Conjunctiva: Normal Nasal: Normal Mouth/Lips: Normal Mucous membranes: Normal Neck: Normal, Supple. No: Lymphadenopathy - Respiratory Respiratory status: No respiratory distress Chest status: Nontender Breath sounds: Normal Chest palpation: Normal - Cardiovascular Rhythm: Tachycardia Heart sounds: S1 appreciated, S2 appreciated - Abdominal Inspection: Normal Distension: No distension Bowel sounds: Normal Tenderness: Tender - Generalized abdominal tenderness Organomegaly: No organomegaly - Back Back: CVA tenderness - Left - Extremities General upper extremity: Normal inspection, Nontender, Normal strength General lower extremity: Normal inspection, Nontender, Normal strength - Neurological Neuro grossly intact: Yes Cognition: Normal [place] Coma Scale Eye Opening: Spontaneous [place] Coma Scale Verbal: Oriented [place] Coma Scale Motor: Obeys Commands [place] Coma Scale Total: 15 - Psychological Associated symptoms: Paranoid, Visual hallucinations. No: Uncooperative - Skin Skin Temperature: Warm Skin Moisture: Dry Skin Color: Normal <SANDY MCKINNEY - Last Filed: 10/03/19 19:58> - Vital signs Vitals: Temp Pulse BP Pulse Ox 97.6 F 111 H 136/98 H 99 10/03/19 15:58 10/03/19 15:58 10/03/19 15:58 10/03/19 15:58 Course - Laboratory Result Diagrams: 10/03/19 14:00 10/03/19 14:00 <SANDY MCKINNEY - Last Filed: 10/03/19 19:58> - Laboratory Result Diagrams: 10/03/19 14:00 10/04/19 07:36 <KETURAH CASTELLANOS - Last Filed: 10/04/19 10:52> - Laboratory Result Diagrams: 10/03/19 14:00 10/04/19 07:36 <SCOTTIE SANTOS - Last Filed: 10/04/19 11:10> - Re-evaluation Re-evalutation: 10/03/19 16:[address] Vasquez regarding patient's diagnostic evaluation. Advises rechecking a chemistry panel in the morning and added on a CPK test at this time. Recommends noncontrast CT scan for evaluation of patient's flank and abdominal pain at this time. 10/03/19 19:06 Patient complains of nausea. Patient's EKG reviewed prior to Zofran dosing. Patient is currently on a 24-hour hold per mental health team. We will recheck chemistry panel in the morning prior to clearing patient. 10/03/19 19:50 Patient reports nausea improved at this time. Patient is sitting on stretcher fidgeting with hands. When provider asked what patient had in his hands, patient said trash and then opened up his hands which were empty. 10/03/19 19:[address] Vasquez given patient's persistent tachycardia. Discussed concerns about possible withdrawal as patient typically takes Suboxone. Patient has a known history of methamphetamine use in the past. Dr. Vasquez did have a concern about possible alcohol withdrawal as well and advises dosing Ativan 2 mg IV. Discussed concerns about possible interactions with Zyprexa, Dr. Vasquez feels that this is okay to give at this time given concerns about p atient's continued agitation. Report and handoff given to Jasiel Ca NP. (SANDY MCKINNEY) - Vital Signs Vital signs: Temp Pulse Resp BP Pulse Ox 98.5 F 127 H 20 122/78 99 10/03/19 17:23 10/03/19 17:23 10/04/19 10:01 10/04/19 10:00 10/04/19 10:01 - Laboratory Laboratory results interpreted by me: 10/03/19 10/03/19 10/03/19 14:00 14:00 16:26 Potassium 5.1 H Creatinine 1.61 H Est GFR ( Amer) 59 L Est GFR (MDRD) Non-Af 49 L Glucose 117 H Calcium 10.4 H AST 87 H ALT 111 H Creatine Kinase 181 H Total Protein 9.7 H Albumin 5.9 H Urine Protein 100 H Urine Ascorbic Acid 20 H Salicylates < 1.0 L Acetaminophen < 10 L 10/04/19 07:36 Potassium Creatinine Est GFR ( Amer) Est GFR (MDRD) Non-Af Glucose Calcium AST 67 H ALT 80 H Creatine Kinase Total Protein Albumin Urine Protein Urine Ascorbic Acid Salicylates Acetaminophen Discharge <SANDY MCKINNEY - Last Filed: 10/03/19 19:58> <KETURAH CASTELLANOS - Last Filed: 10/04/19 10:52> <SCOTTIE SANTOS - Last Filed: 10/04/19 11:10> - Discharge Clinical Impression: Substance abuse, Nausea vomiting and diarrhea Gastritis Qualifiers: Gastritis type: unspecified gastritis Chronicity: acute Gastritis bleeding: without bleeding Qualified Code(s): K29.00 - Acute gastritis without bleeding Condition: Stable Disposition: HOME, SELF-CARE Additional Instructions: Your symptoms appear to be most consistent with stomach or upper intestinal irritation. Please begin taking famotidine 40 mg in the morning and 40 mg at night. This medicine can be purchased directly [id number]. You may also take medicine such as Pepto-Bismol or Tums to assist with your pain. Please return to emergency department immediately if you have worsening of your pain, shortness of breath, vomiting, become unable to exert yourself due to pain or difficulty breathing, you pass out, or have any pain that radiates into your arms, jaw, or back. Please also return if you have any additional symptoms that are concerning to you. Follow-up with your primary care provider in regards to this visit. As we have discussed, the most important thing is lifestyle changes. You need to avoid smoking, sodas, tea, coffee, alcohol, spicy foods, and acidic foods such as citrus fruits, tomato based products, berries, and most fruit juices. You have been evaluated by both medical and behavioral health teams for auditory/visual hallucinations and paranoia and have been deemed appropriate for discharge. While in the emergency department you received the following services: Medical screening and assessment, nursing services, dietary services, pharmacological services, one-on-one counseling and/or psychotherapy, environmental services, and continuous observation by a patient process safety engineering technologist. Medication recommendations have been provided and are as follows: Zyprexa 5MG, twice a day and Cogentin 1MG, daily. It is believed that your current symptoms of auditory/visual hallucinations and paranoia are the result of methamphetamine use. You are highly encouraged to follow up with [facility] regarding your continued substance abuse with in MAT. Please take your medications as prescribed as the medications appear to have stabilized your mood and overall mental health. Please do not stop these medications without discussing with your prescribing physician. NARCOTIC / OPIOD ABUSE: Narcotics and opiods are pain-relieving drugs that are often abused. They are addicting. Narcotics cause euphoria, but it often takes increasing amounts to "feel good" and avoid withdrawal symptoms. Overdose of narcotics causes small pupils, coma, and decreased breathing. It's a common cause of . Purity of street narcotics is unpredictable. Injection of narcotics is risky for abscesses, endocarditis (heart infection), pneumonia, and AIDS. Withdrawal from narcotics causes goose bumps, watery mouth, sweating, nasal congestion, muscle aches, abdominal cramps, vomiting, and diarrhea. There's often restlessness and confusion. Treatment programs are available, but you must make the decision to quit. Medication (such as clonidine) can be prescribed to control the symptoms of withdrawal. AMPHETAMINE / METHAMPHETAMINE ABUSE: Amphetamines are addicting stimulants. Amphetamines overstimulate the nervous system and give a false feeling of power and mastery. These drugs may be obtained as prescription pills for weight loss, narcolepsy, or attention-deficit disorder. More often they're bought as an illegal street drug, methamphetamine (crank, crystal, speed). Using amphetamines repeatedly can lead to serious medical problems including malnutrition, severe depression, and paranoia. It can take increasing amounts to feel good. Eventually, there will be a "burn out." When you go off amphetamines there is a period of depression that may last for weeks or even months. High doses of amphetamines can cause seizures, confusion, hallucinations, delusions, high blood pressure, muscle damage, heart damage, or sudden . Many times these deadly complications occur even with "normal" doses. Injection of amphetamines is risky for developing abscesses, endocarditis (heart infection), pneumonia, and AIDS. Withdrawal from amphetamines often causes anxiety, depression, and drug cravings. Some users become paranoid and psychotic. There may be cramps, nausea, and vomiting. Many treatment programs are available, but you must make the decision to quit. Medication can be prescribed to control the symptoms of amphetamine toxicity (beta blockers or benzodiazepines). Withdrawal symptoms may require tranquilizers. AT ANY TIME, IF YOUR SYMPTOMS CHANGE SIGNIFICANTLY OR WORSEN OR YOU DEVELOP NEW SYMPTOMS, RETURN TO THE EMERGENCY DEPARTMENT IMMEDIATELY FOR RE-EVALUATION. Prescriptions: Sucralfate [Carafate 1 gm Tablet] 1 gm PO ACHS #20 tablet Benztropine Mesylate [Cogentin 1 mg Tablet] 1 tab PO DAILY #14 tab Famotidine [Pepcid 20 mg Tablet] 40 mg PO BID #90 tablet Olanzapine [Zyprexa 5 mg Tablet] 5 mg PO Q12 #28 tablet Referrals: [facility] [Provider Group] - Follow up in 3-5 days
[2019-10-03] MEDS: BENZTROPINE MESYLATE INJ 2 MG/2 ML AMPULE IM SCH (15:56)
[2019-10-03 16:46] LABS: CREATINE KINASE 181 U/L (55-170)
[2019-10-03 16:56] LABS: APPEARANCE,URINE SLIGHTLY-CLOUDY; BILIRUBIN,URINE NEGATIVE (NEGATIVE); GLUCOSE, URINE NEGATIVE (NEGATIVE); KETONES,URINE NEGATIVE (NEGATIVE); LEUKOCYTE ESTERASE,URINE NEGATIVE (NEGATIVE); NITRITE,URINE NEGATIVE (NEGATIVE); PROTEIN,URINE 100 mg/dL (NEGATIVE); URINE SPECIFIC GRAVITY 1.018; UROBILINOGEN,URINE NEGATIVE mg/dL (<2.0)
[2019-10-03 16:58] LABS: COLOR,URINE YELLOW
[2019-10-03 17:08] LABS: URINE BARBITURATES SCREEN NEGATIVE; URINE BENZODIAZEPINES SCREEN NEGATIVE; URINE COCAINE SCREEN NEGATIVE; URINE MARIJUANA (THC) SCREEN NEGATIVE; URINE METHADONE SCREEN NEGATIVE; URINE PHENCYCLIDINE SCREEN NEGATIVE
--- NOTE | 2019-10-03 17:30 | RADIOLOGY REPORT (SQ) ---
EXAM DESCRIPTION: CT ABD/PELVIS NO ORAL OR IV COMPLETED DATE/TIME: 10/03/2019 4:50 pm REASON FOR STUDY: L flank pain, n/v, renal function abnormality COMPARISON: 04/09/2015 TECHNIQUE: CT scan of the abdomen and pelvis performed without intravenous or oral contrast. Images reviewed with lung, soft tissue, and bone windows. Reconstructed coronal and sagittal MPR images revi ewed. All images stored on PACS. All CT scanners at this facility use dose modulation, iterative reconstruction, and/or weight based d osing when appropriate to reduce radiation dose to as low as reasonably achievable (ALARA). [facility]: Dose Right [facility]: CareDose [facility]: Dose Right [facility]: Teradose 4D [facility]: Smart [employer] RADIATION DOSE: CT Rad equipment meets quality standard of care and radiation dose reduction techniq ues were employed. CTDIvol: 6.9 mGy. DLP: 403 mGy-cm.mGy. LIMITATIONS: None. FINDINGS: LOWER CHEST: No significant findings. No nodules or infiltrates. NON-CONTRASTED LIVER, SPLEEN, ADRENALS: Liver is unremarkable. There is splenomegaly. The spleen me asures 15 cm. No adrenal mass. PANCREAS: No masses. No peripancreatic inflammatory changes. GALLBLADDER: Contracted. No stones are seen. RIGHT KIDNEY AND URETER: No suspicious masses. Assessment limited by lack of IV contrast. No signif icant calcifications. No hydronephrosis or hydroureter. LEFT KIDNEY AND URETER: No suspicious masses. Assessment limited by lack of IV contrast. No signifi cant calcifications. No hydronephrosis or hydroureter. AORTA AND RETROPERITONEUM: No aneurysm. No retroperitoneal masses or adenopathy. BOWEL AND PERITONEAL CAVITY: No obvious masses or inflammatory changes. No free fluid. APPENDIX: Not identified. PELVIS, BLADDER, AND ABDOMINAL WALL:No abnormal masses. No free fluid. Bladder normal. BONES: No significant findings. OTHER: No other significant finding. IMPRESSION: Splenomegaly. COMMENT: Quality ID # [id number]: Final reports with documentation of one or more dose reduction techniques (e.g., Automated exposure control, adjustment of the mA and/or kV according to patient size, use of iterative reconstruction technique) TECHNICAL DOCUMENTATION: JOB ID: [id number] 2010 [employer]- All Rights Reserved Reading location - IP/workstation name: [email or web address]
[2019-10-03] MEDS: OLANZAPINE INJ/PF 10 MG SDV IM SCH (18:53)
[2019-10-03] MEDS ORDERED: ONDANSETRON HCL INJ/PF 4 MG/2 ML SDV IV ONE (19:01)
[2019-10-03] MEDS ORDERED: LORAZEPAM INJ 2 MG/1 ML VIAL IV ONE (19:58)
--- NOTE | 2019-10-03 20:34 | ER Document Report ---
Doctor's Note Notes: 10/03/19 20:29 39-year-old male brought in for hallucinations and paranoid behavior. Patient normally on Suboxone, does have history of methamphetamine use, opiate use, marijuana use. Patient was noted to be moderately tachycardic. Mild renal failure. Patient had reported that he was vomiting for the last 10 days, was also ill with upper respiratory symptoms. Patient was given Ativan, question of whether patient may be withdrawing if he has not been taking his Suboxone, denied alcohol use. He is currently resting quietly, no tremors, heart rate is 98. He is being moved to a monitored bed given the question of withdrawal. 10/04/19 03:53 Patient has been sleeping in no distress tonight. His heart rate has been ranging between 66 and 85 since receiving his medications earlier. No tremor is noted at this time. Sinus rhythm on the monitor 10/04/19 05:18 Patient has awakened, is answering questions appropriately, denies suicidal ideation at this time. Heart rate remains in the mid 80s. He states even with the vomiting he had been having over the last 10 days he was taking his Suboxone.
--- NOTE | 2019-10-03 23:29 | EKG REPORT ---
SEVERITY:- ABNORMAL ECG - SINUS TACHYCARDIA BIATRIAL ABNORMALITIES RIGHT AXIS DEVIATION =LPFB INFERIOR INFARCT, AGE INDETERMINATE : Confirmed by: Glen Zimmerman MD 03-Oct-2019 23:28:31
[2019-10-04 08:49] LABS: ALBUMIN 3.5 g/dL (3.5-5.0); ALKALINE PHOSPHATASE 53 U/L (38-126); ANION GAP 6 (5-19); ASPARTATE AMINO TRANSFERASE 67 U/L (17-59); BILIRUBIN,DIRECT 0.3 mg/dL (0.0-0.4); BILIRUBIN,TOTAL 0.9 mg/dL (0.2-1.3); BLOOD UREA NITROGEN 16 mg/dL (7-20); CALCIUM 8.8 mg/dL (8.4-10.2); CARBON DIOXIDE 27 mmol/L (22-30); CHLORIDE 106 mmol/L (98-107); GLUCOSE 89 mg/dL (75-110); TOTAL PROTEIN 6.3 g/dL (6.3-8.2)
[2019-10-04 09:05] LABS: POTASSIUM 4.1 mmol/L (3.6-5.0)
[2019-10-04] MEDS: OLANZAPINE INJ/PF 10 MG SDV IM SCH (09:43)
[2019-10-04] MEDS: BENZTROPINE MESYLATE INJ 2 MG/2 ML AMPULE IM SCH (09:47)
[2019-10-04] MEDS ORDERED: FAMOTIDINE 20 MG TABLET PO ONE (10:24)
[2019-10-04] MEDS ORDERED: SUCRALFATE 1 GM TABLET PO ONE (10:24)
--- NOTE | 2019-10-04 10:26 | ER Document Report ---
Doctor's Note Notes: 10/04/19 10:25 PHYSICAL EXAMINATION: GENERAL: Appears well, healthy, well-nourished, no acute distress. ENT: Poor dental hygiene. LUNGS: Equal breath sounds bilaterally and clear to auscultation. No wheezes rales or rhonchi. CARDIOVASCULAR: S1-S2, regular rate, regular rhythm. Radial pulses 2+, normal. ABDOMEN: Normoactive bowel sounds. Soft, nontender, no guarding, no rebound tenderness, and no masses palpated. PSYCH: Appears mildly anxious. Mental health evaluated the patient in due to the patient having amphetamines in his symptoms, they are assuming his symptoms are due to the methamphetamine. Patient has good [facility]up [facility]. He will follow-up with them. Plan is for discharge. Patient denies any suicidal homicidal ideation. 10/04/19 11:06 Patient states that he feels better after receiving Pepcid and Carafate. He will be sent home with Zyprexa, Cogentin, and Pepcid and Carafate. He will follow-up with report. He will also follow-up with his primary care provider. Follow-up precautions were given. Verbal discharge instructions were given to the patient. They verbalized understanding. They are stable for discharge.
--- NOTE | 2019-10-04 10:52 | PSYCHOLOGICAL NOTE ---
Psych Note - Psych Note Date seen by psych provider: 10/04/19 Time seen by psych provider: 08:00 Psych Note: When asked if patient was still experiencing symptoms of paranoia, patient reports there is always doubt about his auditory/visual hallucinations due to his mental yovana diagnosis of Bipolar and Schizophrenia. Patient reports being "mildly" paranoid. Clinician confronted patient regarding his positive urine drug screen for amphetamine/methamphetamine. Patient states that "opioids is my worst problem." Patient states he only took meth because "I felt so bad and needed energy." Patient states the Zyprexa is not working. Clinician provided psychoeducation regarding patient's polysubstance use. Clinician continued that until patient ceases polysubstance use it will be challenging to determine if the medications are working or not as patient's polysubstance use, especially meth intoxication, can present with symptoms of roman and paranoia. Patient states he continues to take his Suboxone daily. Patient does not take Suboxone as prescribed. Patient states some days he will take more and some days he will take less. Patient was encouraged to take medication as prescribed, daily. Patient denies suicidal and homicidal ideation. Patient declines referrals to detox and substance abuse treatment. Patient states he will follow up with his mental health provider, Blake. Medication recommendations per [facility]'s contracted psychiatrist Dr. Ramona MELO are as follows Zyprexa 5mg IM twice daily Cogentin 1mg IM daily Thorazine 50mg IM every 8 hours as needed Impression\\plan: Patient is recommended for rescind of 24-hour petition for evaluation. Patient has an extensive substance abuse and mental health history. Medication recommendations have been provided. Patient denies suicidal and homicidal ideations. Patient initially presented with paranoid delusions from experiencing visual hallucinations and thoughts that people are out to hurt him. At this time it is believed patient's presentation is due to substance abuse as patient's presentation improves as he comes down off the substance(s). Patient was evaluated by behavioral health team on 08/28/2019, 09/29/2019, 10/01/2019, and 10/03/2019 for same etiology. Patient declines detox and/or substance abuse treatment. Patient is linked with [facility] for MAT to treat opioid use disorder. Patient states he takes more of his Suboxone than prescribed on some days, and less on others. Patient was provided with psychoeducation regarding his continued polysubstance use. Patient was provided psychoeducation regarding intoxication from polysubstance use and behaviors. Plan is for patient to follow up with his mental health/substance abuse provider, Blake. Dr. Padgett was consulted to care management of this patient; attending physicians in agreement with recommendations and disposition.
[2019-10-04 11:33] VITALS: BP 118/72
== END 2019-10-04 11:43 | disposition home or self-care (01) ==
LOC: ER 13:24
DX: F15.10 Other stimulant abuse, uncomplicated (principal); K29.00 Acute gastritis without bleeding; R11.2 Nausea with vomiting, unspecified; R10.84 Generalized abdominal pain; R10.817 Generalized abdominal tenderness; R00.0 Tachycardia, unspecified; R50.9 Fever, unspecified; R44.1 Visual hallucinations; N19 Unspecified kidney failure; Z79.899 Other long term (current) drug therapy; Z88.6 Allergy status to analgesic agent; Z88.5 Allergy status to narcotic agent; Z88.8 Allergy status to other drugs, medicaments and biological substances; Z91.048 Other nonmedicinal substance allergy status
CPT/HCPCS: 93005; 99285; 96372; 96361; 96374; 36415; 80307 ×4; 82550; 85025; 80053; 81001; 74176; 93010; J0515 ×2; J3230; J2405; J7030

== ENCOUNTER 2019-10-15 19:03 | Emergency (ER) | payer SELFPAY ==
[2019-10-15 20:34] LABS: ABSOLUTE LYMPHOCYTES (AUTO) 1.2 10^3/uL (0.5-4.7); ABSOLUTE MONOCYTES (AUTO) 0.8 10^3/uL (0.1-1.4); ABSOLUTE NEUT (AUTO) 5.8 10^3/uL (1.7-8.2); BASOPHILS % (AUTO) 0.5 % (0-2); HEMATOCRIT 41.9 % (37.9-51.0); HEMOGLOBIN 14.7 g/dL (13.5-17.0); MEAN CORPUSCULAR HEMOGLOBIN 30.5 pg (27.0-33.4); MEAN CORPUSCULAR HGB CONC 35.1 g/dL (32.0-36.0); MEAN CORPUSCULAR VOLUME 87 fl (80-97); MONOCYTES % (AUTO) 10.1 % (3-13); PLATELET COUNT 235 10^3/uL (150-450); RED BLOOD COUNT 4.83 10^6/uL (4.35-5.55); SEGMENTED NEUTROPHILS % (AUTO) 74.4 % (42-78); TOTAL CELLS COUNTED % (AUTO) 100 %; WHITE BLOOD COUNT 7.7 10^3/uL (4.0-10.5)
[2019-10-15] MEDS ORDERED: ONDANSETRON 4 MG TAB.RAPDIS PO ONE (20:41)
[2019-10-15] MEDS ORDERED: OLANZAPINE 5 MG TABLET PO ONE (20:41)
[2019-10-15] MEDS ORDERED: LORAZEPAM 1 MG TABLET PO ONE (20:42)
--- NOTE | 2019-10-15 20:45 | ER Document Report ---
ED Psych Disorder / Suicide - General Chief Complaint: Psych Problem Stated Complaint: VISUAL HALLUCINATIONS Time Seen by Provider: 10/15/19 20:12 Notes: Patient is a 39-year-old male that comes to the emergency department for chief complaint of paranoid schizophrenia and not taking his medications. He states that he "freaked out" last night because he thought the dogs knew something was in the house, he states that he became very concerned that there was invader, he states that he "might have been acting paranoid". He states that his fiance called the EMS and the EMS recommended he come to the emergency department. He denies suicidal ideations or homicidal ideations. He denies hearing voices. He states that he stopped taking his Zyprexa because it felt like it was not doing anything. He states that he has been on Haldol but it gave him visual difficulties, Seroquel but it gave him nightmares, Risperdal did not help, and Zyprexa does not seem to be helping either. He states that of all of them Zyprexa had the fewest side effects however. Patient admits to occasional recreational drugs but denies any over the past day. Patient is also on Suboxone and has an ankle bracelet with his parole. Patient also states a coupl e of days ago he was vomiting and ill but he states he is improved now except for vague nausea intermittently. He reports some current nausea. He denies any other complaints including fevers, chest pain, headache. TRAVEL OUTSIDE OF THE [place] IN LAST 30 DAYS: No - Related Data Allergies/Adverse Reactions: codeine [Codeine] Allergy (Verified 08/27/19 16:33) cyclobenzaprine HCl [From Flexeril] Allergy (Verified 08/27/19 16:33) acetaminophen [From Tylenol] Adverse Reaction (Verified 08/27/19 16:33) mercury Allergy (Uncoded 08/27/19 16:33) Past Medical History - General Information source: Patient - Social History Smoking Status: Never Smoker Frequency of alcohol use: None Lives with: Spouse/Significant other Family History: Arthritis, CAD, COPD, DM, Hyperlipidemia, Hypertension. denies: CVA, Malignancy, Thyroid Disfunction Patient has suicidal ideation: No Patient has homicidal ideation: No Pulmonary Medical History: Reports: Hx Asthma - As a child Neurological Medical History: Reports: Hx Seizures Renal/ Medical History: Reports: Hx Kidney Stones. Denies: Hx Peritoneal Dialysis GI Medical History: Reports: Hx Hepatitis - C Musculoskeletal Medical History: Reports Hx Musculoskeletal Trauma Skin Medical History: Reports Hx Cellulitis - Right foot 3 weeks ago, healed Psychiatric Medical History: Reports: Hx Anxiety, Hx Bipolar Disorder, Hx Depression, Hx Schizophrenia - paranoid Traumatic Medical History: Reports: Hx Fractures - right knee Infectious Medical History: Reports: Hx Hepatitis - C Past Surgical History: Reports: Hx Orthopedic Surgery - Immunizations Immunizations up to date: Yes Hx Diphtheria, Pertussis, Tetanus Vaccination: Yes Review of Systems - Review of Systems Constitutional: See HPI EENT: No symptoms reported Cardiovascular: No symptoms reported Respiratory: No symptoms reported Gastrointestinal: No symptoms reported Genitourinary: No symptoms reported Male Genitourinary: No symptoms reported Musculoskeletal: No symptoms reported Skin: No symptoms reported Hematologic/Lymphatic: No symptoms reported Neurological/Psychological: See HPI Physical Exam - Vital signs Vitals: Temp Pulse Resp BP Pulse Ox 98.4 F 115 H 18 129/80 H 99 10/15/19 19:21 10/15/19 19:21 10/15/19 19:21 10/15/19 19:21 10/15/19 19:21 - Notes Notes: GENERAL: Alert, interacts well. No acute distress. HEAD: Normocephalic, atraumatic. EYES: Pupils equal, round, and reactive to light. Extraocular movements intact. ENT: Oral mucosa moist, tongue midline. Oropharynx unremarkable. Airway patent. LUNGS: Clear to auscultation bilaterally, no wheezes, rales, or rhonchi. No respiratory distress. HEART: Borderline tachycardia, normal rhythm, no murmur ABDOMEN: Soft, non-tender. Non-distended. Bowel sounds present in all 4 quadrants. GENITOURINARY: Deferred EXTREMITIES: Moves all 4 extremities spontaneously. No edema, normal radial and dorsalis pedis pulses bilaterally. No cyanosis. BACK: no cervical, thoracic, lumbar midline tenderness. No saddle anesthesia, normal distal neurovascular exam. NEUROLOGICAL: Alert and oriented x3. Normal speech. Cranial nerves II through XII grossly intact. PSYCH: Poor eye contact but otherwise unremarkable, answers questions reasonably, does not appear to be responding to internal stimuli SKIN: Warm, dry, normal turgor. No rashes or lesions noted. Course - Re-evaluation Re-evalutation: Patient is slightly restless but cooperative. He has borderline tachycardia and slightly dilated pupils. However he is coherent, cooperative, denies SI or HI, admits to being off his medication and discussed these frankly. I discussed options with patient. Decision was made to medically clear him, start him on antipsychotic and see if this helps, and have mental health consult in the morning to see if we can find a medication that he will do well on for his schizophrenia. Patient is very agreeable with this. CBC unremarkable, chemistry unremarkable, alcohol negative, EKG nonspecific and unremarkable. Patient does admit to occasional substance abuse, urine drug screen is pending. Patient has no chest pain or current symptoms. Urine drug screen does indicate methamphetamine. Otherwise unremarkable. Vital signs unremarkable, tachycardia resolved (after ativan and time). Patient is medically cleared pending mental health evaluation. Patient is voluntary and cooperative. - Vital Signs Vital signs: Temp Pulse Resp BP Pulse Ox 98.1 F 123 H 20 128/93 H 100 10/16/19 00:05 10/16/19 00:05 10/16/19 00:05 10/16/19 00:05 10/16/19 00:05 - Laboratory Result Diagrams: 10/15/19 20:20 10/15/19 20:20 Laboratory results interpreted by me: 10/15/19 10/16/19 20:20 04:45 BUN 23 H AST 91 H ALT 139 H Total Protein 8.6 H Albumin 5.3 H Urine Protein 30 H Urine Ketones 20 H Salicylates < 1.0 L Acetaminophen < 10 L - EKG Interpretation by Me Additional EKG results interpreted by me: EKG shows sinus tachycardia at a rate of 108, QTC of 440, normal axis, no T wave inversions or ST segment changes in consecutive leads Discharge - Discharge Clinical Impression: Non compliance w medication regimen, Paranoia Schizophrenia Qualifiers: Schizophrenia type: paranoid schizophrenia Qualified Code(s): F20.0 - Paranoid schizophrenia Condition: Stable Disposition: PSYCH HOSP/UNIT
[2019-10-15 20:51] LABS: ALBUMIN 5.3 g/dL (3.5-5.0); ALKALINE PHOSPHATASE 74 U/L (38-126); ANION GAP 13 (5-19); ASPARTATE AMINO TRANSFERASE 91 U/L (17-59); BILIRUBIN,DIRECT 0.4 mg/dL (0.0-0.4); BLOOD UREA NITROGEN 23 mg/dL (7-20); CALCIUM 9.8 mg/dL (8.4-10.2); CARBON DIOXIDE 27 mmol/L (22-30); CHLORIDE 102 mmol/L (98-107); GLUCOSE 107 mg/dL (75-110)
[2019-10-15 20:56] LABS: TOTAL PROTEIN 8.6 g/dL (6.3-8.2)
[2019-10-15 20:59] LABS: ACETAMINOPHEN < 10 ug/mL (10-30); ALCOHOL < 10 mg/dL (NONE DETECTED); SALICYLATE < 1.0 mg/dL (2.0-20.0)
[2019-10-15] MEDS ORDERED: LORAZEPAM INJ 2 MG/1 ML VIAL IM ONE (23:11)
[2019-10-16 05:18] LABS: URINE BARBITURATES SCREEN NEGATIVE; URINE BENZODIAZEPINES SCREEN NEGATIVE; URINE COCAINE SCREEN NEGATIVE; URINE MARIJUANA (THC) SCREEN NEGATIVE; URINE METHADONE SCREEN NEGATIVE; URINE PHENCYCLIDINE SCREEN NEGATIVE
[2019-10-16 05:23] LABS: APPEARANCE,URINE CLOUDY; BILIRUBIN,URINE NEGATIVE (NEGATIVE); COLOR,URINE AMBER; GLUCOSE, URINE NEGATIVE (NEGATIVE); KETONES,URINE 20 mg/dL (NEGATIVE); LEUKOCYTE ESTERASE,URINE NEGATIVE (NEGATIVE); NITRITE,URINE NEGATIVE (NEGATIVE); PROTEIN,URINE 30 mg/dL (NEGATIVE); URINE SPECIFIC GRAVITY 1.023; UROBILINOGEN,URINE NEGATIVE mg/dL (<2.0)
--- NOTE | 2019-10-16 09:30 | ER Document Report ---
Doctor's Note Notes: 10/16/19 09:25 S: 39-year-old male with history of schizophrenia he typically likes to refuse his medicines and then becomes paranoid. He was brought in last night by his girlfriend because of the paranoia. Apparently he has pretty good insight that when he does not take his medicine he does get paranoid. He also uses m ethamphetamines. When he uses meth he also increases in his paranoia. He has not had any SI, HI, hallucinations. O: Constitutional: Alert and oriented in no acute distress Cardiac: Regular rate and rhythm, no murmurs, gallops, or rubs Pulm: Clear to auscultation bilaterally, no wheezes, rhonchi's, rales Abdomen: Soft, nontender, nondistended, obese psych:Good eye contact, cooperative. Denies SI, HI, hallucinations Skin: Good turgor, warm, and dry A/P: Behavioral health team saw patient this morning and he is well-known in the department. He is cleared for home. He was never on IVC papers. He is doing well this morning. We will discharge home.
[2019-10-16 10:44] VITALS: BP 110/80
--- NOTE | 2019-10-16 17:08 | PSYCHOLOGICAL NOTE ---
Psych Note - Psych Note Date seen by psych provider: 10/16/19 Time seen by psych provider: 08:35 Psych Note: Reason for Consult: Psychosis Patient reports that he has been doing well and not had plan to use anything however when he was at work he became stressed so ended up using methamphetamine. He understands that this increases his anxiety and paranoid delusions. He denies experiencing current symptoms of internal stimuli. Clinician provided psychoeducation to the patient on the importance of abstaining from illegal substances as this can increase his mental health symptoms. Patient requests to tell his girlfriend himself that he has been using. Patient is alert and orientated to person, place, time and circumstance. Mood is euthymic with congruent affect. Patient denies suicidal and homicidal ideation. Patient reports paranoid delusions and auditory hallucinations; currently behaviors congruent with an intact reality based presentation ie organized and linear thought process. Eye contact is fair; clinician notes patient's eyes are shifting back and forth with with a slight frequent jump. Conversational speech is within normal rate, tone and prosody. Intellectual abilities appear to be within the average range. Attention and concentration are fair. Insight, judgment, impulse control are fair. Impression\plan: Patient is cleared from acute psychiatric services. Patient has a reported history of both mental health and substance abuse. Patient is currently on probation and has been using methamphetamines on and off since being released from [facility]. Patient confirms he understands that when he uses methamphetamines this increases his mental health symptoms and causes his paranoid delusions. He requests clinician not to disclose his substance abuse to his girlfriend that he lives with. He confirms he will speak to her personally tonight, stating that this is not a discussion that should be done over the phone he should do this [id number]. Dr. Padgett was consulted to care management of this patient; attending physicians in agreement with recommendations and disposition.
--- NOTE | 2019-10-16 17:29 | EKG REPORT ---
SEVERITY:- ABNORMAL ECG - SINUS TACHYCARDIA LEFT ATRIAL ABNORMALITY BORDERLINE RIGHT AXIS DEVIATION : Confirmed by: Ana Laura Olmedo MD 16-Oct-2019 17:28:10
== END 2019-10-16 10:46 | disposition home or self-care (01) ==
LOC: ER 19:03
DX: F20.0 Paranoid schizophrenia (principal); Z91.14 Patient's other noncompliance with medication regimen; R11.0 Nausea; Z79.899 Other long term (current) drug therapy; J45.909 Unspecified asthma, uncomplicated; Z88.8 Allergy status to other drugs, medicaments and biological substances
CPT/HCPCS: 93005; 99285; 96372; 36415; 80307 ×4; 85025; 80053; 81001; 93010; S0119; J2060

== ENCOUNTER 2019-10-22 19:40 | Emergency (ER) | payer SELFPAY ==
[2019-10-22 20:14] VITALS: BP 138/77
--- NOTE | 2019-10-22 20:30 | ER Document Report ---
HPI - HPI Patient complains to provider of: anxiety Time Seen by Provider: 10/22/19 20:02 Pain Level: Denies Context: This [id number]-year-old presents to the emergency department via EMS for anxiety. Patient has history of bipolar schizophrenia. He recently used some meth which increases his paranoia feeling. Patient had an incident in [facility] where people said he was a snatch and he is very anxious about it. Patient did call my mobile crisis prior to arrival but he felt he was waiting so long so his girlfriend called EMS. Patient is talking to [employer], Galo, and reports that he is not suicidal or homicidal. He reports he would like to go to [facility] for psych assistance. He reports he does not like to [place]. Associated Symptoms: None Exacerbated by: Denies Relieved by: Denies Similar symptoms previously: No Recently seen / treated by doctor: No - CONSTITUTIONAL Constitutional: DENIES: Fever, Chills - REPRODUCTIVE Reproductive: DENIES: : Past Medical History - General Information source: Patient - Social History Smoking Status: Current Every Day Smoker Cigarette use (# per day): Yes Chew tobacco use (# tins/day): No Frequency of alcohol use: Occasional Drug Abuse: None Lives with: Friend Family History: Arthritis, CAD, COPD, DM, Hyperlipidemia, Hypertension. denies: CVA, Malignancy, Thyroid Disfunction Patient has suicidal ideation: No Patient has homicidal ideation: No Pulmonary Medical History: Reports: Hx Asthma - As a child Neurological Medical History: Reports: Hx Seizures Renal/ Medical History: Reports: Hx Kidney Stones. Denies: Hx Peritoneal Dialysis GI Medical History: Reports: Hx Hepatitis - C Musculoskeletal Medical History: Reports Hx Musculoskeletal Trauma Skin Medical History: Reports Hx Cellulitis - Right foot 3 weeks ago, healed Psychiatric Medical History: Reports: Hx Anxiety, Hx Bipolar Disorder, Hx Depression, Hx Schizophrenia - paranoid Traumatic Medical History: Reports: Hx Fractures - right knee Infectious Medical History: Reports: Hx Hepatitis - C Past Surgical History: Reports: Hx Orthopedic Surgery - Immunizations Immunizations up to date: Yes Hx Diphtheria, Pertussis, Tetanus Vaccination: Yes Vertical Provider Document - CONSTITUTIONAL Agree With Documented VS: Yes Exam Limitations: No Limitations General Appearance: WD/WN, No Apparent Distress - INFECTION CONTROL TRAVEL OUTSIDE OF THE [place] IN LAST 30 DAYS: No - HEENT HEENT: Atraumatic, Normocephalic - NECK Neck: Normal Inspection, Supple. negative: Lymphadenopathy-Left, Lymphadenopathy-Right - RESPIRATORY Respiratory: Breath Sounds Normal, No Respiratory Distress - CARDIOVASCULAR Cardiovascular: Regular Rate, Regular Rhythm - GI/ABDOMEN Gastrointestinal: Abdomen Soft, Abdomen Non-Tender - MUSCULOSKELETAL/EXTREMETIES Musculoskeletal/Extremeties: DANI FELICIANO - NEURO Level of Consciousness: Awake, Alert, Appropriate Motor/Sensory: No Motor Deficit - DERM Integumentary: Warm, Dry Course - Re-evaluation Re-evalutation: 10/23/19 02:02 39-year-old male with history of paranoid schizophrenia and bipolar presents to the emergency department with anxiety. Patient denies suicidal or homicidal ideations. Patient reports he is anxious because it is rumored that he was a snitch to people in [facility]. Patient did attempt to call mobile crisis but he felt like he was waiting so long so he came to the emergency department via EMS. Patient wishes to leave to go to [facility] to plan. He is familiar with their psych psych facility. He reports he does not want to go to [facility]. Galo from behavioral health reports he is safe to leave to go to [facility] via an Uber. The patient recently used meth. Patient reports he becomes increased paranoia with meth use. Galo has encouraged him to quit using meth for at least the next 2 weeks. Patient denies all other complaints such as fever nausea vomiting diarrhea. - Vital Signs Vital signs: Temp Pulse Resp BP Pulse Ox 98.2 F 86 20 138/77 H 98 10/22/19 20:12 10/22/19 20:12 10/22/19 20:12 10/22/19 20:12 10/22/19 20:12 Discharge - Discharge Clinical Impression: Anxiety Condition: Stable Disposition: HOME, SELF-CARE Instructions: Anxiety ([facility]) Additional Instructions: *You have been evaluated for anxiety *Avoid using meth *Follow up with your mental health provider within one week *Return to ED for worsening condition, changes, needs Monitor your blood pressure. Your blood pressure was elevated today. This may be because you were anxious, in pain or because you need medication. It is important to follow up with your primary care provider for full evaluation. Forms: Elevated Blood Pressure
== END 2019-10-22 20:50 | disposition home or self-care (01) ==
LOC: ER 19:40
DX: F41.9 Anxiety disorder, unspecified (principal); F22 Delusional disorders; F17.210 Nicotine dependence, cigarettes, uncomplicated; Z87.442 Personal history of urinary calculi; Z86.19 Personal history of other infectious and parasitic diseases
CPT/HCPCS: 99283

== ENCOUNTER 2019-11-02 12:01 | Emergency (ER) | payer SELFPAY ==
[2019-11-02 14:00] LABS: ABSOLUTE LYMPHOCYTES (AUTO) 1.4 10^3/uL (0.5-4.7); ABSOLUTE MONOCYTES (AUTO) 0.6 10^3/uL (0.1-1.4); ABSOLUTE NEUT (AUTO) 5.1 10^3/uL (1.7-8.2); BASOPHILS % (AUTO) 0.3 % (0-2); EOSINOPHILS % (AUTO) 0.3 % (0-6); HEMATOCRIT 45.1 % (37.9-51.0); HEMOGLOBIN 15.7 g/dL (13.5-17.0); LYMPHOCYTES % (AUTO) 19.7 % (13-45); MEAN CORPUSCULAR HEMOGLOBIN 29.4 pg (27.0-33.4); MEAN CORPUSCULAR HGB CONC 34.7 g/dL (32.0-36.0); MEAN CORPUSCULAR VOLUME 85 fl (80-97); MONOCYTES % (AUTO) 7.8 % (3-13); PLATELET COUNT 216 10^3/uL (150-450); RED BLOOD COUNT 5.32 10^6/uL (4.35-5.55); SEGMENTED NEUTROPHILS % (AUTO) 71.9 % (42-78); TOTAL CELLS COUNTED % (AUTO) 100 %; WHITE BLOOD COUNT 7.1 10^3/uL (4.0-10.5)
[2019-11-02 14:20] LABS: ALBUMIN 5.3 g/dL (3.5-5.0); ALKALINE PHOSPHATASE 76 U/L (38-126); ANION GAP 10 (5-19); ASPARTATE AMINO TRANSFERASE 67 U/L (17-59); BILIRUBIN,DIRECT 0.1 mg/dL (0.0-0.4); BILIRUBIN,TOTAL 1.4 mg/dL (0.2-1.3); BLOOD UREA NITROGEN 22 mg/dL (7-20); CALCIUM 9.7 mg/dL (8.4-10.2); CARBON DIOXIDE 27 mmol/L (22-30); CHLORIDE 100 mmol/L (98-107); GLUCOSE 110 mg/dL (75-110); POTASSIUM 4.3 mmol/L (3.6-5.0); TOTAL PROTEIN 8.4 g/dL (6.3-8.2)
[2019-11-02] MEDS ORDERED: CHLORPROMAZINE HCL INJ 25 MG/1 ML AMPULE IM ONE (14:22)
--- NOTE | 2019-11-02 14:29 | ER Document Report ---
ED General <KETURAH CASTELLANOS - Last Filed: 11/02/19 15:11> - General TRAVEL OUTSIDE OF THE [place] IN LAST 30 DAYS: No - Related Data Home Medications: latuda. suboxone <ARIN ESPANA Lul - Last Filed: 11/02/19 15:33> - General Chief Complaint: Psych Problem Stated Complaint: PSYCH EVAL Notes: Patient is a 39-year-old white male with a past medical history of amphetamine abuse, paranoid schizophrenia and bipolar disorder who presents to the emergency department the chief complaint of needing medicine to help control his symptoms. The patient reports auditory hallucinations that just "mumble". He states he is very paranoid. He was recently in an outpatient treatment facility for 7 days and reports they tried various medications that were not working, Zyprexa and then Latuda. He states he try the Latuda for a few days after leaving but states is not working and he can no longer afford it. He denies any suicidal or homicidal ideations. Denies any visual hallucinations. No other pain, complaints or concerns at this time. (ARIN ESPANA) - Related Data Allergies/Adverse Reactions: codeine [Codeine] Allergy (Verified 11/02/19 12:20) cyclobenzaprine HCl [From Flexeril] Allergy (Verified 11/02/19 12:20) acetaminophen [From Tylenol] Adverse Reaction (Verified 11/02/19 12:20) mercury Allergy (Uncoded 11/02/19 12:20) Past Medical History - Social History Smoking Status: Unknown if Ever Smoked Family History: Arthritis, CAD, COPD, DM, Hyperlipidemia, Hypertension. denies: CVA, Malignancy, Thyroid Disfunction Patient has suicidal ideation: Yes Patient has homicidal ideation: No Pulmonary Medical History: Reports: Hx Asthma - As a child Neurological Medical History: Reports: Hx Seizures Renal/ Medical History: Reports: Hx Kidney Stones. Denies: Hx Peritoneal Dialysis GI Medical History: Reports: Hx Hepatitis - C Musculoskeletal Medical History: Reports Hx Musculoskeletal Trauma Skin Medical History: Reports Hx Cellulitis - Right foot 3 weeks ago, healed Psychiatric Medical History: Reports: Hx Anxiety, Hx Bipolar Disorder, Hx Depression, Hx Schizophrenia - paranoid Traumatic Medical History: Reports: Hx Fractures - right knee Infectious Medical History: Reports: Hx Hepatitis - C Past Surgical History: Reports: Hx Orthopedic Surgery - Immunizations Immunizations up to date: Yes Hx Diphtheria, Pertussis, Tetanus Vaccination: Yes <ESPANA,ARIN Lul - Last Filed: 11/02/19 15:33> Review of Systems - Review of Systems Neurological/Psychological: Hallucinations -: Yes All other systems reviewed and negative <MALORIEARIN Mccarty - Last Filed: 11/02/19 15:33> Physical Exam - General General appearance: Appears well, Alert In distress: None - Respiratory Respiratory status: No respiratory distress Chest status: Nontender Breath sounds: Normal Chest palpation: Normal - Cardiovascular Rhythm: Regular Heart sounds: Normal auscultation - Neurological Neuro grossly intact: Yes Cognition: Normal Orientation: AAOx4 [place] Coma Scale Eye Opening: Spontaneous [place] Coma Scale Verbal: Oriented [place] Coma Scale Motor: Obeys Commands Ken[place] Coma Scale Total: 15 Speech: Normal - Psychological Associated symptoms: Flat affect, Paranoid <ARIN ESPANA - Last Filed: 11/02/19 15:33> Course - Laboratory Result Diagrams: 11/02/19 13:45 11/02/19 13:45 <KETURAH CASTELLANOS - Last Filed: 11/02/19 15:11> - Laboratory Result Diagrams: 11/02/19 13:45 11/02/19 13:45 <ARIN ESPANA - Last Filed: 11/02/19 15:33> - Re-evaluation Re-evalutation: 11/02/19 15:30 Psychiatry team was consulted, they evaluated the patient and consulted with the psychiatrist, Dr. Padgett who recommended 50 mg Thorazine IM and 1 mg Cogentin I M here as well as a prescription for the same in p.o. version for home for the next 3 days. They cleared the patient for discharge. Patient denies suicidal or homicidal ideations. He is stable and appropriate for discharge and outpatient follow-up. Counseled him at length regarding the importance of outpatient follow-up and advised to return here or any ER immediately with any new, persistent or worsening symptoms. He verbalized understood and agreed. (ARIN ESPANA) - Laboratory Laboratory results interpreted by me: 11/02/19 13:45 Sodium 136.6 L BUN 22 H Total Bilirubin 1.4 H AST 67 H ALT 105 H Total Protein 8.4 H Albumin 5.3 H Salicylates 1.0 L Acetaminophen < 10 L Discharge <KETURAH CASTELLANOS - Last Filed: 11/02/19 15:11> <ARIN ESPANA - Last Filed: 11/02/19 15:33> - Discharge Clinical Impression: Methamphetamine abuse Psychosis Qualifiers: Psychosis type: other Qualified Code(s): F28 - Other psychotic disorder not due to a substance or known physiological condition Condition: Stable Disposition: HOME, SELF-CARE Instructions: Hallucinations ([facility]) Additional Instructions: You have been evaluated by both medical and behavioral health teams for persecutory delusions and have been deemed appropriate for discharge. While in the emergency department you received the following services: Medical screening and assessment, nursing services, dietary services, pharmacological services, one-on-one counseling and/or psychotherapy, environmental services, and continuous observation by a patient project safety manager. Medication recommendations have been have been provided and are as follows: Thorazine 50MG, one time dose, Cogentin 1MG, one time dose; and you were provided with a prescription for 3 days for Thorazine 50MG, daily. Please do not stop these medications without discussing with your prescribing physician as medications are important for continued stabilization. You are highly encourage to cease all illicit substance use. Please follow up with your mental health provider, Blake. AMPHETAMINE / METHAMPHETAMINE ABUSE: Amphetamines are addicting stimulants. Amphetamines overstimulate the nervous system and give a false feeling of power and mastery. These drugs may be obtained as prescription pills for weight loss, narcolepsy, or attention-deficit disorder. More often they're bought as an illegal street drug, methamphetamine (crank, crystal, speed). Using amphetamines repeatedly can lead to serious medical problems including malnutrition, severe depression, and paranoia. It can take increasing amounts to feel good. Eventually, there will be a "burn out." When you go off amphetamines there is a period of depression that may last for weeks or even months. High doses of amphetamines can cause seizures, confusion, hallucinations, delusions, high blood pressure, muscle damage, heart damage, or sudden . Many times these deadly complications occur even with "normal" doses. Injection of amphetamines is risky for developing abscesses, endocarditis (heart infection), pneumonia, and AIDS. Withdrawal from amphetamines often causes anxiety, depression, and drug cravings. Some users become paranoid and psychotic. There may be cramps, nausea, and vomiting. Many treatment programs are available, but you must make the decision to quit. Medication can be prescribed to control the symptoms of amphetamine toxicity (beta blockers or benzodiazepines). Withdrawal symptoms may require tranquilizers. AT ANY TIME, IF YOUR SYMPTOMS CHANGE SIGNIFICANTLY OR WORSEN OR YOU DEVELOP NEW SYMPTOMS, RETURN TO THE EMERGENCY DEPARTMENT IMMEDIATELY FOR RE-EVALUATION. Prescriptions: Benztropine Mesylate [Cogentin 1 mg Tablet] 1 mg PO DAILY #3 tablet Chlorpromazine HCl [Thorazine 50 mg Tablet] 50 mg PO DAILY #3 tablet
[2019-11-02 14:30] LABS: ACETAMINOPHEN < 10 ug/mL (10-30); ALCOHOL < 10 mg/dL (NONE DETECTED)
[2019-11-02] MEDS ORDERED: BENZTROPINE MESYLATE INJ 2 MG/2 ML AMPULE IM ONE (14:30)
[2019-11-02 14:31] LABS: APPEARANCE,URINE CLEAR; BILIRUBIN,URINE NEGATIVE (NEGATIVE); COLOR,URINE YELLOW; GLUCOSE, URINE NEGATIVE (NEGATIVE); KETONES,URINE NEGATIVE (NEGATIVE); LEUKOCYTE ESTERASE,URINE NEGATIVE (NEGATIVE); NITRITE,URINE NEGATIVE (NEGATIVE); PROTEIN,URINE NEGATIVE (NEGATIVE); URINE SPECIFIC GRAVITY 1.018; UROBILINOGEN,URINE NEGATIVE mg/dL (<2.0)
[2019-11-02 14:47] LABS: URINE BARBITURATES SCREEN NEGATIVE; URINE BENZODIAZEPINES SCREEN NEGATIVE; URINE COCAINE SCREEN NEGATIVE; URINE MARIJUANA (THC) SCREEN NEGATIVE; URINE METHADONE SCREEN NEGATIVE; URINE PHENCYCLIDINE SCREEN NEGATIVE
[2019-11-02 15:45] VITALS: BP 119/80
--- NOTE | 2019-11-02 15:45 | PSYCHOLOGICAL NOTE ---
Psych Note - Psych Note Date seen by psych provider: 11/02/19 Time seen by psych provider: 13:00 Psych Note: Patient is a 39-year-old male who presents to ED via EMS with concerns for persecutory delusions. Patient is well known to behavioral health team. Patient was last seen by behavioral health on 10/22/2019 for similar concerns. Patient was discharged from [facility] on 10/30/2019. Patient states he contacted EMS because he was "melting down" due to his pa ranoia regarding "people out to get me." Patient states Skyla with [facility] cancelled the ambulance and "talked me into coming to the hospital." When asked what patient reported to Skyla, patient states he informed Skyla he did not need to come to the ED as he was not a threat to himself or others, and he explained this has been an ongoing issues since he was [facility] from [facility]. Patient denies illicit substance use (denied methamphetamine/heroin when asked specifically about those substances). Patient states he is taking "half a strip" of his Suboxone, which is less that the prescribed dose. Patient denies SI/HI. Patient denies distressing auditory and visual hallucinations. Patient endorses persecutory delusions, however reports "I sindi know the difference between the delusions and reality). Explained to patient the ED is not his mental health provider. Clinician discussed patient's noncompliance with medications and the need for patient to follow up with his mental health provider, [facility]. Patient verbalized understanding. Patient states he was prescribed Lat[facility] at [facility], but reported it did not "work" and was too expensive. Patient states he has been on Zyprexa for 3 year with no benefit. Discussed the need for patient to work collaboratively with a mental health provider. Patient's urine drug screen is positive for methamphetamines. Patient is alert and orientated to person, place, time and circumstance. Mood is somewhat anxious. Patient is able to engage with clinician in a calm and cooperative manner. No emotional lability is noted. Patient denies suicidal and homicidal ideations. Patient has a history of paranoid delusions in connection with methamphetamine use. Patient today is presenting anxious however it is unclear if the topic of his paranoia is a delusion or reality. Thought processes are organized and linear. Eye contact is well-maintained. Conversational speech is within normal rate, tone and prosody. Intellectual abilities appear to be within the average range. Attention and concentration is fair. Insight, judgment, impulse control is fair. Medication recommendations per [facility] contracted psychiatrist Dr. Ramona MD are as follows: Add Thorazine 50MG, one time Add Cogentin 1MG, one time Please provide patient with a 3 day prescription at discharge Impression/Plan: Patient is cleared from acute psychiatric services. Patient is well-known to clinician and department. Patient has baseline paranoia with methamphetamine abuse. At this time it is unclear if patient's paranoia is part of a delusion or fact. Patient is calm and cooperative and able to discuss his concerns in a organized, linear, logical manner. Patient appropriately verbalized concerns with the cost of medications and his ability to pay. Patient verbalized an understanding that his mental health and substance abuse treatment needs are best served by his mental health provider, [facility]. Patient is linked with [facility] who attempts daily contact with patient until his provider appointment. An ACTT application has been processed and is awaiting approval. Plan is for patient to follow up with his mental health home, [facility]. Dr. Padgett was consulted to care management of this patient; any physicians in agreement with recommendations and disposition.
--- NOTE | 2019-11-04 00:38 | EKG REPORT ---
SEVERITY:- ABNORMAL ECG - SINUS TACHYCARDIA : Confirmed by: Nahum Marquis 04-Nov-2019 00:37:26
== END 2019-11-02 15:52 | disposition home or self-care (01) ==
LOC: ER 12:01
DX: F15.10 Other stimulant abuse, uncomplicated (principal); F20.0 Paranoid schizophrenia; F31.9 Bipolar disorder, unspecified; Z79.899 Other long term (current) drug therapy; T43.596A Underdosing of other antipsychotics and neuroleptics, initial encounter; Z91.120 Patient's intentional underdosing of medication regimen due to financial hardship; Z91.128 Patient's intentional underdosing of medication regimen for other reason; Z88.6 Allergy status to analgesic agent; Z88.5 Allergy status to narcotic agent; Z88.8 Allergy status to other drugs, medicaments and biological substances; Z91.048 Other nonmedicinal substance allergy status
CPT/HCPCS: 93005; 99285; 96372; 36415; 80307 ×4; 84443; 85025; 80053; 81001; 93010; J0515; J3230

== ENCOUNTER 2019-11-08 03:55 | Emergency (ER) | payer SELFPAY ==
--- NOTE | 2019-11-08 04:59 | ER Document Report ---
ED General - General Chief Complaint: Psych Problem Stated Complaint: IVC Time Seen by Provider: 11/08/19 04:51 Mode of Arrival: Ambulatory Information source: Law Enforcement - Or cement he is a little bit mentally challenged Cannot obtain history due to: Mentally challenged - That shaved head and that the arch tear TRAVEL OUTSIDE OF THE [place] IN LAST 30 DAYS: No - HPI Onset: Just prior to arrival - Pain kidney meth for you may well Onset/Duration: Persistent Quality of pain: No pain - I got so she did symptoms Associated symptoms: Weakness Exacerbated by: Denies Relieved by: Denies Similar symptoms previously: No Recently seen / treated by doctor: No - Related Data Allergies/Adverse Reactions: codeine [Codeine] Allergy (Verified 11/02/19 12:20) cyclobenzaprine HCl [From Flexeril] Allergy (Verified 11/02/19 12:20) acetaminophen [From Tylenol] Adverse Reaction (Verified 11/02/19 12:20) mercury Allergy (Uncoded 11/02/19 12:20) Past Medical History - Social History Smoking Status: Current Every Day Smoker Cigarette use (# per day): Yes Chew tobacco use (# tins/day): No Smoking Education Provided: Yes Frequency of alcohol use: Occasional Drug Abuse: Methamphetamine Lives with: Alone Family History: Arthritis, CAD, COPD, DM, Hyperlipidemia, Hypertension. denies: CVA, Malignancy, Thyroid Disfunction Pulmonary Medical History: Reports: Hx Asthma - As a child Neurological Medical History: Reports: Hx Seizures Renal/ Medical History: Reports: Hx Kidney Stones. Denies: Hx Peritoneal Dialysis GI Medical History: Reports: Hx Hepatitis - C Musculoskeletal Medical History: Reports Hx Musculoskeletal Trauma Skin Medical History: Reports Hx Cellulitis - Right foot 3 weeks ago, healed Psychiatric Medical History: Reports: Hx Anxiety, Hx Bipolar Disorder, Hx Depression, Hx Schizophrenia - paranoid Traumatic Medical History: Reports: Hx Fractures - right knee Infectious Medical History: Reports: Hx Hepatitis - C Past Surgical History: Reports: Hx Orthopedic Surgery - Immunizations Immunizations up to date: Yes Hx Diphtheria, Pertussis, Tetanus Vaccination: Yes Review of Systems - Review of Systems Constitutional: No symptoms reported EENT: No symptoms reported Cardiovascular: No symptoms reported Respiratory: No symptoms reported Gastrointestinal: No symptoms reported Genitourinary: No symptoms reported Male Genitourinary: No symptoms reported Musculoskeletal: No symptoms reported Skin: No symptoms reported Hematologic/Lymphatic: No symptoms reported Neurological/Psychological: No symptoms reported Physical Exam - Vital signs Interpretation: Normal - General General appearance: Alert - HEENT Head: Normocephalic Eyes: Normal Conjunctiva: Normal Cornea: Normal - Respiratory Respiratory status: No respiratory distress Chest status: Nontender Breath sounds: Normal Chest palpation: Normal - Cardiovascular Rhythm: Regular Heart sounds: Normal auscultation Murmur: No Friction rub: No Lemuel's crunch: No - Abdominal Inspection: Normal Distension: No distension Bowel sounds: Normal Tenderness: Nontender Organomegaly: No organomegaly - Back Back: Normal - Extremities General upper extremity: Normal inspection General lower extremity: Normal inspection - Neurological Neuro grossly intact: Yes Cognition: Normal Orientation: AAOx4 [place] Coma Scale Eye Opening: Spontaneous [place] Coma Scale Verbal: Oriented [place] Coma Scale Motor: Obeys Commands Ken[place] Coma Scale Total: 15 Speech: Normal Cranial nerves: Normal Cerebellar coordination: Normal Motor strength normal: LUE, RUE, LLE, RLE - Psychological Associated symptoms: Agitated, Paranoid - Skin Skin Temperature: Warm Skin Moisture: Dry Critical Care Note - Critical Care Note Total time excluding time spent on procedures (mins): 60 Comments: I discussed IVC with the patient and advised mental health will be evaluating him this morning. Discharge - Discharge Clinical Impression: Psychosis, Methamphetamine abuse, Schizophrenia, paranoid Disposition: PSYCH HOSP/UNIT
[2019-11-08 06:05] LABS: ABSOLUTE EOSINOPHILS # (AUTO) 0.1 10^3/uL (0.0-0.6); ABSOLUTE LYMPHOCYTES (AUTO) 1.5 10^3/uL (0.5-4.7); ABSOLUTE MONOCYTES (AUTO) 0.5 10^3/uL (0.1-1.4); ABSOLUTE NEUT (AUTO) 5.1 10^3/uL (1.7-8.2); BASOPHILS % (AUTO) 0.4 % (0-2); EOSINOPHILS % (AUTO) 0.8 % (0-6); HEMATOCRIT 41.1 % (37.9-51.0); HEMOGLOBIN 14.5 g/dL (13.5-17.0); LYMPHOCYTES % (AUTO) 20.3 % (13-45); MEAN CORPUSCULAR HGB CONC 35.1 g/dL (32.0-36.0); MEAN CORPUSCULAR VOLUME 85 fl (80-97); MONOCYTES % (AUTO) 7.5 % (3-13); PLATELET COUNT 229 10^3/uL (150-450); RED BLOOD COUNT 4.81 10^6/uL (4.35-5.55); RED CELL DISTRIBUTION WIDTH 13.7 % (11.5-14.0); TOTAL CELLS COUNTED % (AUTO) 100 %; WHITE BLOOD COUNT 7.2 10^3/uL (4.0-10.5)
[2019-11-08 06:10] LABS: APPEARANCE,URINE SLIGHTLY-CLOUDY; BILIRUBIN,URINE NEGATIVE (NEGATIVE); COLOR,URINE AMBER; GLUCOSE, URINE NEGATIVE (NEGATIVE); KETONES,URINE NEGATIVE (NEGATIVE); LEUKOCYTE ESTERASE,URINE NEGATIVE (NEGATIVE); NITRITE,URINE NEGATIVE (NEGATIVE); PROTEIN,URINE 30 mg/dL (NEGATIVE); URINE SPECIFIC GRAVITY 1.025; UROBILINOGEN,URINE NEGATIVE mg/dL (<2.0)
[2019-11-08 06:13] LABS: ALBUMIN 4.9 g/dL (3.5-5.0); ALKALINE PHOSPHATASE 76 U/L (38-126); ANION GAP 10 (5-19); ASPARTATE AMINO TRANSFERASE 71 U/L (17-59); BILIRUBIN,TOTAL 0.8 mg/dL (0.2-1.3); BLOOD UREA NITROGEN 19 mg/dL (7-20); CALCIUM 9.8 mg/dL (8.4-10.2); CARBON DIOXIDE 29 mmol/L (22-30); CHLORIDE 102 mmol/L (98-107); GLUCOSE 105 mg/dL (75-110); POTASSIUM 3.9 mmol/L (3.6-5.0)
[2019-11-08 06:14] LABS: ACETAMINOPHEN < 10 ug/mL (10-30); ALCOHOL < 10 mg/dL (NONE DETECTED); SALICYLATE < 1.0 mg/dL (2.0-20.0)
[2019-11-08 06:22] LABS: URINE BARBITURATES SCREEN NEGATIVE; URINE BENZODIAZEPINES SCREEN NEGATIVE; URINE COCAINE SCREEN NEGATIVE; URINE MARIJUANA (THC) SCREEN NEGATIVE; URINE METHADONE SCREEN NEGATIVE; URINE PHENCYCLIDINE SCREEN NEGATIVE
--- NOTE | 2019-11-08 18:28 | EKG REPORT ---
SEVERITY:- OTHERWISE NORMAL ECG - SINUS RHYTHM ATRIAL PREMATURE COMPLEX : Confirmed by: Ana Laura Olmedo MD 08-Nov-2019 18:26:55
[2019-11-08] MEDS ORDERED: CHLORPROMAZINE HCL 50 MG TABLET PO ONE (18:52)
[2019-11-08] MEDS ORDERED: BENZTROPINE MESYLATE 1 MG TABLET PO ONE (18:52)
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
[2019-11-08] MEDS ORDERED: CLONIDINE 0.1 MG/24 HR PATCH.TDWK TD ONE (19:24)
[2019-11-08 22:58] VITALS: BP 138/85
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
== END 2019-11-08 22:33 ==
LOC: ER 03:55
DX: F15.10 Other stimulant abuse, uncomplicated (principal); F20.0 Paranoid schizophrenia; F29 Unspecified psychosis not due to a substance or known physiological condition; Z88.6 Allergy status to analgesic agent
CPT/HCPCS: 93005; 99291; 36415; 80307 ×4; 85025; 80053; 81001; 93010; J3490 ×2

== ENCOUNTER 2020-04-08 22:28 | Emergency (ER) | payer SELFPAY ==
[2020-04-08] MEDS ORDERED: NORMAL SALINE 1000 ML 1,000 ML IV ONE (22:49)
[2020-04-08 22:58] LABS: ABSOLUTE EOSINOPHILS # (AUTO) 0.2 10^3/uL (0.0-0.6); ABSOLUTE LYMPHOCYTES (AUTO) 1.1 10^3/uL (0.5-4.7); ABSOLUTE MONOCYTES (AUTO) 0.8 10^3/uL (0.1-1.4); ABSOLUTE NEUT (AUTO) 4.2 10^3/uL (1.7-8.2); BASOPHILS % (AUTO) 0.6 % (0-2); EOSINOPHILS % (AUTO) 3.1 % (0-6); HEMATOCRIT 38.2 % (37.9-51.0); HEMOGLOBIN 12.9 g/dL (13.5-17.0); LYMPHOCYTES % (AUTO) 17.5 % (13-45); MEAN CORPUSCULAR HEMOGLOBIN 29.5 pg (27.0-33.4); MEAN CORPUSCULAR HGB CONC 33.9 g/dL (32.0-36.0); MEAN CORPUSCULAR VOLUME 87 fl (80-97); MONOCYTES % (AUTO) 13.1 % (3-13); PLATELET COUNT 186 10^3/uL (150-450); RED BLOOD COUNT 4.39 10^6/uL (4.35-5.55); RED CELL DISTRIBUTION WIDTH 13.7 % (11.5-14.0); SEGMENTED NEUTROPHILS % (AUTO) 65.7 % (42-78); TOTAL CELLS COUNTED % (AUTO) 100 %; WHITE BLOOD COUNT 6.4 10^3/uL (4.0-10.5)
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
[2020-04-08 23:07] LABS: ACETAMINOPHEN < 10 ug/mL (10-30); ALBUMIN 4.2 g/dL (3.5-5.0); ALCOHOL < 10 mg/dL (NONE DETECTED); ALKALINE PHOSPHATASE 64 U/L (38-126); ANION GAP 9 (5-19); ASPARTATE AMINO TRANSFERASE 47 U/L (17-59); BILIRUBIN,TOTAL 0.8 mg/dL (0.2-1.3); BLOOD UREA NITROGEN 32 mg/dL (7-20); CALCIUM 8.6 mg/dL (8.4-10.2); CARBON DIOXIDE 26 mmol/L (22-30); CHLORIDE 106 mmol/L (98-107); GLUCOSE 137 mg/dL (75-110); POTASSIUM 3.6 mmol/L (3.6-5.0); SALICYLATE 2.4 mg/dL (2.0-20.0); TOTAL PROTEIN 6.9 g/dL (6.3-8.2)
[2020-04-08 23:09] LABS: APPEARANCE,URINE SLIGHTLY-CLOUDY; BILIRUBIN,URINE NEGATIVE (NEGATIVE); COLOR,URINE AMBER; GLUCOSE, URINE NEGATIVE (NEGATIVE); KETONES,URINE NEGATIVE (NEGATIVE); LEUKOCYTE ESTERASE,URINE NEGATIVE (NEGATIVE); NITRITE,URINE NEGATIVE (NEGATIVE); PROTEIN,URINE 30 mg/dL (NEGATIVE); UROBILINOGEN,URINE NEGATIVE mg/dL (<2.0)
[2020-04-08 23:21] LABS: URINE BARBITURATES SCREEN NEGATIVE; URINE BENZODIAZEPINES SCREEN NEGATIVE; URINE COCAINE SCREEN NEGATIVE; URINE MARIJUANA (THC) SCREEN NEGATIVE; URINE METHADONE SCREEN NEGATIVE; URINE PHENCYCLIDINE SCREEN NEGATIVE
--- NOTE | 2020-04-08 23:35 | RADIOLOGY REPORT (SQ) ---
EXAM DESCRIPTION: XR CHEST 1 VIEW COMPLETED DATE/TME: 04/08/2020 22:44 CLINICAL HISTORY: 39 years, Male, [employer] EXAM DESCRIPTION: CLINICAL HISTORY: [place] [employer] COMPARISON: 07/01/2017 FINDINGS: Single view of the chest is submitted. Cardiac silhouette is normal. No focal parenchymal or pleural disease. No acute bony abnormality. There is no significant pulmonary vascular engorgement. IMPRESSION: No evidence of acute cardiopulmonary disease.
[2020-04-08 23:38] LABS: ARTERIAL BLOOD BASE EXCESS -3.2 mmol/L; ARTERIAL BLOOD FIO2 ROOM AIR; ARTERIAL BLOOD HCO3 23.2 mmol/L (20-24); ARTERIAL BLOOD O2 SATURATION 89.5 % (94-98); ARTERIAL BLOOD PCO2 46.4 mmHg (35-45); ARTERIAL BLOOD PH 7.32 (7.35-7.45); ARTERIAL BLOOD PO2 61.4 mmHg (80-100); ARTERIAL BLOOD TOTAL CO2 24.6 mmol/L (23-27)
[2020-04-09 06:36] VITALS: BP 133/63
--- NOTE | 2020-04-09 09:51 | EKG REPORT ---
SEVERITY:- NORMAL ECG - SINUS RHYTHM : Confirmed by: Nahum Marquis 09-Apr-2020 09:50:55
[2020-04-09] MEDS ORDERED: CHLORPROMAZINE HCL INJ 25 MG/1 ML AMPULE IM PRN (11:02)
[2020-04-09] MEDS ORDERED: BENZTROPINE MESYLATE INJ 2 MG/2 ML AMPULE IM SCH (11:15)
[2020-04-09] MEDS ORDERED: ONDANSETRON 4 MG TAB.RAPDIS PO ONE (11:29)
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
--- NOTE | 2020-04-09 12:06 | ER Document Report ---
Doctor's Note Notes: 04/09/20 12:03 Patient's vital signs and previous labs, diagnostic imaging reviewed. Reviewed mental health notes, nurses notes and previous vital signs. Patient denies any shortness of breath, cough or difficulty breathing. Does not have the answer if he has suicidal ideations. No thoughts of hurting anyone else. He states that he just hears a lot screaming at this time. States he is also on Suboxone. Recommendations for medications from her introducer with mental health are Thorazine and Cogentin. These medications were ordered for the patient General: upset, not having eye contact with provider Heart: Regular rate rhythm, murmurs rubs or gallops Lungs: Clear to auscultation bilaterally Psych: Poor eye contact A&P: Patient is medically cleared. Pending mental health dispo
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
== END 2020-04-09 13:53 | disposition other institution (70) ==
LOC: ER 22:28
DX: J45.909 Unspecified asthma, uncomplicated (principal); J70.5 Respiratory conditions due to smoke inhalation; F19.10 Other psychoactive substance abuse, uncomplicated; R45.1 Restlessness and agitation; R45.4 Irritability and anger; Z88.8 Allergy status to other drugs, medicaments and biological substances; F20.0 Paranoid schizophrenia
CPT/HCPCS: 93005; 99285; 96372; 96360; 36415; 80307 ×4; 82803; 85025; 80053; 81001; 71045; 93010; J0515; J3230; S0119; J7030